=== PATIENT | female | born 1960 | race American Indian/Alaskan Native ===

== ENCOUNTER 2017-11-16 10:08 | Day surgery (SDC) | payer BC, OTHER ==
[~2017-11-16 10:08] MED LIST: ANCEF/STERILE WATER 2 GM/20 ML IV NR; HEPARIN SUB-Q ONE
--- NOTE | 2017-11-16 11:00 | Anesthesia Consultation ---
Anesthesia Consult and Med Hx Date of service: 11/16/17 - Airway Anesthetic Teeth Evaluation: Edentulous (implants) ROM Head & Neck: Adequate Mental/Hyoid Distance: Adequate Mallampati Class: Class II Intubation Access Assessment: Probably Good - Pulmonary Exam CTA: Yes - Cardiac Exam Cardiac Exam: RRR - Pre-Operative Health Status ASA Pre-Surgery Classification: ASA4 Proposed Anesthetic Plan: General - Cardiovascular System Hx Hypertension: Yes (OVER 10 YEARS) - Central Nervous System Hx Neuromuscular Disorder: Yes (diabetic neuropathy) Hx Psychiatric Problems: No - Endocrine Hx End Stage Renal Disease: Yes (on HD m/w/f. last HD on 11/15/17) Hx Non-Insulin Dependent Diabetes: Yes - Hematic Hx Anemia: Yes - Other Systems Hx Alcohol Use: Yes (RARELY) Hx Substance Use: No Hx Cancer: No - Additional Comments Anesthesia Medical History Comments: Informed consent obtained
[2017-11-16] MEDS ORDERED: VERSED IV PRN (11:01)
[2017-11-16] MEDS ORDERED: SUBLIMAZE IV PRN (11:01)
--- NOTE | 2017-11-16 11:01 | Anesthesia Day of Surgery ---
Anesthesia Day of Surgery - Day of Surgery Patient Examined: Yes Patient H&P Reviewed: Yes Patient is NPO: Yes Beta Blockers: Yes
[2017-11-16] MEDS ORDERED: HEPARIN SUB-Q SCH (11:15)
[2017-11-16 11:19] LABS: Basophils % (Auto) 0.4 % (0.0-1.8); Eosinophils # (Auto) 0.1 K/mm3 (0.0-0.4); Eosinophils % (Auto) 1.5 % (0.0-4.3); Hematocrit 32.6 % (30.3-42.9); Hemoglobin 10.7 gm/dl (10.1-14.3); Lymphocytes # (Auto) 1.7 K/mm3 (1.2-5.4); Mean Corpuscular HGB Conc 33 % (30-34); Mean Corpuscular Hemoglobin 30 pg (28-32); Mean Corpuscular Volume 92 fl (79-97); Monocytes # (Auto) 0.5 K/mm3 (0.0-0.8); Monocytes % (Auto) 9.3 % (0.0-7.3); Platelet Count 145 K/mm3 (140-440); Red Blood Count 3.54 M/mm3 (3.65-5.03); Red Cell Distribution Width 19.1 % (13.2-15.2)
[2017-11-16 11:30] LABS: Calcium 9.6 mg/dL (8.4-10.2)
[2017-11-16] MEDS ORDERED: NACL 0.9% 1000 ML 1,000 ML IV SCH (12:00)
[2017-11-16] MEDS ORDERED: HEPARIN 10,000 UNITS/10 ML ONE (13:38)
[2017-11-16] MEDS ORDERED: NACL 0.9% 250ML 250 ML ONE (13:38)
[2017-11-16] MEDS ORDERED: MARCAINE 0.25% INFILTRATI ONE ×2 (13:38→14:36)
[2017-11-16] MEDS ORDERED: NACL P/F VIAL (10 ML) 10 ML ONE (13:39)
[2017-11-16] MEDS ORDERED: XYLOCAINE MPF 2% ONE (13:42)
[2017-11-16] MEDS ORDERED: DIPRIVAN 10 MG/ML IV ONE (13:43)
[2017-11-16] MEDS ORDERED: SUBLIMAZE ONE (13:47)
[2017-11-16] MEDS ORDERED: ePHEDrine SULFATE ONE (14:13)
[2017-11-16] MEDS ORDERED: ZOFRAN ONE (14:27)
[2017-11-16] MEDS ORDERED: ZEMURON IV ONE (14:27)
[2017-11-16] MEDS ORDERED: HEPARIN 10,000 UNITS/10 ML IV ONE (14:30)
[2017-11-16] MEDS ORDERED: NACL 0.9% 250ML IV ONE (14:35)
[2017-11-16] MEDS ORDERED: NACL P/F VIAL (10 ML) INFILTRATI ONE (14:36)
[2017-11-16] MEDS ORDERED: NACL 0.9% IR ONE (14:36)
--- NOTE | 2017-11-16 14:44 | Post Operative Note ---
Pre-op diagnosis: End stage renal failure Post-op diagnosis: same Findings: Redundant omentum Procedure: Laparoscopic PD cath insertion. omentopexy Anesthesia: VINITA Surgeon: MOUNA BRINK Estimated blood loss: minimal Pathology: none Condition: stable Disposition: PACU
--- NOTE | 2017-11-16 14:47 | Discharge Summary ---
Short Stay Discharge Plan Diet: regular Wound: keep clean and dry (PD catheter flushing in dialysis unit on 11/18 or - pt to make appt) Follow up with: ATILIO TAYLOR PA [Primary Care Provider] - 7 Days Prescriptions: Ondansetron [Zofran TAB] 4 mg PO Q8HR PRN #20 tablet PRN Reason: Nausea oxyCODONE /ACETAMINOPHEN [Percocet 5/325] 1 tab PO Q4HR PRN #20 tab PRN Reason: Pain , Severe (7-10) traMADol [Ultram 50 MG tab] 50 mg PO Q6HR PRN #20 tablet PRN Reason: Pain
[2017-11-16 16:34] VITALS: BP 189/87
--- NOTE | 2017-11-24 10:58 | Operative Report ---
PREOPERATIVE DIAGNOSIS: End-stage renal failure, on hemodialysis. POSTOPERATIVE DIAGNOSIS: End-stage renal failure, on hemodialysis. OPERATIVE PROCEDURE: Laparoscopic peritoneal dialysis catheter implantation and laparoscopic omentopexy. ANESTHESIA: General endotracheal. SURGEON: Markel Sheppard MD INDICATIONS: A 56-year-old female patient with end-stage renal failure ,on hemodialysis through a PermCath. She wishes to transfer over to peritoneal dialysis and she is brought in for the above procedure. FINDINGS: No abdominal wall hernia or ascites evident. Omentum is thin, but redundant dropping [facility]ent[facility] down to the pelvis. Visualized part of the liver appeared normal. DESCRIPTION OF PROCEDURE: After satisfactory induction of general endotracheal anesthesia, abdomen was prepped and draped. Abdominal wall skin was covered with an Ioban occlusive drape. Right-sided mid abdominal incision was made and a Veress needle was inserted in the peritoneal cavity. After adequate carbon dioxide insufflation up to 15 mmHg, a 5 mm trocar was inserted. Through this, a 5-mm 30-degree angle scope was placed and under direct visualization, a right upper quadrant 5-mm port was placed. Camera was changed to this location. Omentum was deflected off to the left upper quadrant and below the costal margin in the anterior axillary line. A suture passer needle was inserted and 3 flips of omentum were passed. Omentum was pulled up and attached to left upper quadrant. A 57 cm double cuffed coiled Tenckhoff catheter was soaked in saline solution. The site of insertion was measured and this is at the level of the umbilicus on the left side. A small incision was made after infiltrating local anesthetic and subcutaneous tissue was divided. Some small opening was made in the anterior rectus fascia. Under laparoscopic visualization, a step 1 trocar needle with a sheath was inserted counterpunctured inferiorly in the midline. The needle was removed. The sheath was dilated using a dilator under trocar. The trocars were removed. A catheter guide was passed through the catheter. The catheter was inserted under laparoscopic visualization. The coiled aspect of the catheter was placed over the bowel loops in the pelvis. The deeper cuff was placed between the parietal peritoneum and the anterior rectus fascia. Superficial cuff was placed in the subcutaneous plane and the catheter was brought lateral to the main incision and titanium adapters and transistors were attached to the catheter. The catheter was flushed and it was fresh and aspirating well. Desufflation was done. All the trocars were removed under direct visualization. Incisions were closed with 3-0 Vicryl and 4-0 Monocryl. Bulky dressings were placed over the main incision and Betadine cap was placed. The tail end of the transfer set was left outside further to be flushed in the dialysis unit. She tolerated the procedure and transferred to Postanesthesia Care Unit in satisfactory condition. JOB# [id number] CHOCON/MILADY
--- NOTE | 2017-12-06 09:25 | Operative Report ---
PREOPERATIVE DIAGNOSIS: End-stage renal failure. POSTOPERATIVE DIAGNOSIS: End-stage renal failure. OPERATIVE PROCEDURE: Laparoscopic peritoneal dialysis catheter insertion and laparoscopic omentopexy. ANESTHESIA: General endotracheal. IMPLANTS: PD catheter. BLOOD LOSS: Minimal. COMPLICATIONS: None. INDICATIONS: A 56-year-old female patient with end-stage renal failure, is on temporary hemodialysis, wanted to switch over to peritoneal dialysis program for the long-term renal replacement maintenance and she is brought in for peritoneal dialysis catheter insertion. FINDINGS: No abdominal wall hernia or inguinal hernia evident. No adhesions were noted. Omentum was thin but redundant dropping half way down to the pelvis. DESCRIPTION OF PROCEDURE: After satisfactory induction of general endotracheal anesthesia, abdomen was prepped and draped. Abdominal wall skin was covered with Ioban occlusive drape. A right-sided flank incision was made and a Veress needle was inserted in the peritoneal cavity. After adequate carbon dioxide insufflation up to 15 mmHg, a 5 mm trocar was inserted and through this, a 5-mm 30-degree scope was placed and under direct visualization, a right upper quadrant 5 mm trocar was placed. The omentum was deflected to the left upper quadrant and below the left costal margin in the anterior axillary line, a small incision was made. A suture passer needle with a 0 Vicryl tie was inserted and 3 slips of omentum were passed through this. The omentum was pulled up and tied up to the left upper quadrant. A 57 cm double cuffed Tenckhoff catheter was soaked in saline solution. The site of insertion was measured on the anterior abdominal wall and this is about 1 cm superior and left of the umbilicus. Local anesthetic was infiltrated and a 2 cm transverse incision was made. Subcutaneous tissue was divided. A small incision was made in the anterior rectus fascia. A step 1 trocar needle with sheath was inserted. Counter puncture inferiorly in the midline under laparoscopic visualization. The needle was removed. The sheath was dilated using a dilator under trocar. The trocar was removed. A catheter guide was passed through the catheter and the catheter was inserted under laparoscopic visualization. The coiled aspect of the catheter was placed over the bowel loops in the pelvis. The deeper cuff was placed between the parietal peritoneum and the anterior rectus fascia. Superficial cuff was placed in subcutaneous plane and the catheter was brought out through a separate stab incision lateral to the main incision. Titanium adapters and transfer sets were attached to the catheter. There was no twist or kinking of the catheter. The catheter was flushed and aspirated. It was functioning well. About 150 mL of dilute heparin solution was instilled through the catheter and later it was flushed with 20 mL saline containing 5000 units of heparin. Desufflation was done and all the trocars were removed under direct visualization after checking for hemostasis. The main incision was closed in 2 layers with 3-0 Vicryl and 4-0 Vicryl. Other incisions closed with 4-0 Vicryl. Bulky dressings were placed over the incision and the exit site and the tail end of the transfer set was left outside to be flushed in the dialysis unit after placing a Betadine cap. At the exit site, a Biopatch was placed as well. She tolerated the procedure well and was transferred to postanesthesia care unit in satisfactory condition. JOB# [id number] CHOCON/MILADY
== END 2017-11-16 10:09 | disposition home or self-care (01) ==
LOC: OR 10:08
PROVIDERS: ATTEND Surgery
DX: I12.0 Hypertensive chronic kidney disease with stage 5 chronic kidney disease or end stage renal disease (principal); E11.22 Type 2 diabetes mellitus with diabetic chronic kidney disease; N18.6 End stage renal disease; E11.42 Type 2 diabetes mellitus with diabetic polyneuropathy; Z99.2 Dependence on renal dialysis; Z79.84 Long term (current) use of oral hypoglycemic drugs
CPT/HCPCS: 36415; 49324; 80048; 85025; C1750; J0690; J1644; J2405; J2704; J3010; J7030; J7050

== ENCOUNTER 2017-11-18 10:24 | Outpatient (CLI) | payer OTHER ==
--- NOTE | 2017-11-19 15:26 | Mammography Report ---
BILATERAL DIGITAL SCREENING MAMMOGRAM with CAD : 11/18/17 10:24:00 CLINICAL: Routine screening.On dialysis with a right dialysis catheter. COMPARISON:None available. FINDINGS: Suboptimal positioning of the right breast is related to the position of the dialysis catheter. The breasts are extremely dense, which limits the sensitivity of mammography. Scattered bilateral benign calcifications. Bilateral moderate skin thickening. No mass, architectural distortion or suspicious calcifications. IMPRESSION: No mammographic evidence of malignancy. BI-RADS CATEGORY: 2 -- Benign RECOMMENDATION: Routine mammographic screening in one year. COMMENT: Patient follow-up letters are generated by our [employer] application.
== END 2017-11-18 10:25 | disposition home or self-care (01) ==
LOC: MAMMO 10:24
PROVIDERS: ATTEND Internal Medicine
DX: Z12.31 Encounter for screening mammogram for malignant neoplasm of breast (principal)
CPT/HCPCS: 77067

== ENCOUNTER 2018-06-21 05:54 | Day surgery (SDC) | payer OTHER ==
[2018-06-21] MEDS ORDERED: NACL 0.9% 1000 ML 1,000 ML IV SCH (06:00)
[2018-06-21] MEDS ORDERED: ANCEF/STERILE WATER 2 GM/20 ML 2 GM/20 ML SYRINGE IV NR (06:00)
[2018-06-21] MEDS ORDERED: MARCAINE 0.5% INFILTRATI ONE ×3 (07:20→09:52)
[2018-06-21] MEDS ORDERED: PAPAVERINE ONE (07:21)
[2018-06-21] MEDS ORDERED: NACL 0.9% 500 ML 0 ML ONE (07:21)
[2018-06-21] MEDS ORDERED: HEPARIN 10,000 UNITS/10 ML ONE (07:21)
[2018-06-21] MEDS ORDERED: PROTAMINE SULFATE ONE (07:21)
[2018-06-21] MEDS ORDERED: RIFADIN ONE (07:22)
[2018-06-21] MEDS ORDERED: NACL P/F VIAL (10 ML) 0 ML ONE (07:23)
[2018-06-21] MEDS ORDERED: DECADRON ONE (07:41)
[2018-06-21] MEDS ORDERED: XYLOCAINE MPF 2% ONE (07:41)
[2018-06-21] MEDS ORDERED: DIPRIVAN 10 MG/ML IV ONE (07:41)
[2018-06-21] MEDS ORDERED: ZOFRAN ONE ×2 (07:41→11:24)
[2018-06-21] MEDS ORDERED: SUBLIMAZE ONE (07:41)
[2018-06-21] MEDS ORDERED: SUBLIMAZE IV PRN (07:59)
[2018-06-21] MEDS ORDERED: VERSED IV NR (08:00)
[2018-06-21] MEDS ORDERED: XYLOCAINE 1% 20 mL ONE (08:10)
[2018-06-21 08:14] LABS: Basophils % (Auto) 0.4 % (0.0-1.8); Eosinophils # (Auto) 0.1 K/mm3 (0.0-0.4); Eosinophils % (Auto) 2.5 % (0.0-4.3); Hematocrit 31.5 % (30.3-42.9); Hemoglobin 10.1 gm/dl (10.1-14.3); Lymphocytes # (Auto) 1.2 K/mm3 (1.2-5.4); Lymphocytes % (Auto) 25.4 % (13.4-35.0); Mean Corpuscular HGB Conc 32 % (30-34); Mean Corpuscular Hemoglobin 30 pg (28-32); Mean Corpuscular Volume 94 fl (79-97); Monocytes # (Auto) 0.5 K/mm3 (0.0-0.8); Monocytes % (Auto) 10.9 % (0.0-7.3); Platelet Count 202 K/mm3 (140-440); Red Blood Count 3.33 M/mm3 (3.65-5.03); Red Cell Distribution Width 19.5 % (13.2-15.2)
--- NOTE | 2018-06-21 08:17 | Anesthesia Consultation ---
Anesthesia Consult and Med Hx Date of service: 06/21/18 - Airway Anesthetic Teeth Evaluation: Edentulous ROM Head & Neck: Adequate Mental/Hyoid Distance: Adequate Mallampati Class: Class I Intubation Access Assessment: Good - Pulmonary Exam CTA: Yes - Cardiac Exam Cardiac Exam: RRR - Pre-Operative Health Status ASA Pre-Surgery Classification: ASA4 Proposed Anesthetic Plan: General - Pulmonary Hx Smoking: No Hx Asthma: No Hx Respiratory Symptoms: No - Cardiovascular System Hx Hypertension: Yes Hx Heart Attack/AMI: No Hx Percutaneous Transluminal Coronary Angioplasty (PTCA): No Hx Cardia Arrhythmia: No - Central Nervous System Hx Neuromuscular Disorder: Yes (diabetic neuropathy) Hx Seizures: Yes CVA: Yes - Gastrointestinal Hx Gastroesophageal Reflux Disease: No - Endocrine Hx End Stage Renal Disease: Yes (MWF HD; last 06/20) Hx Liver Disease: No Hx Non-Insulin Dependent Diabetes: Yes - Hematic Hx Anemia: Yes - Other Systems Hx Alcohol Use: Yes (RARELY) Hx Cancer: No
--- NOTE | 2018-06-21 08:18 | Anesthesia Day of Surgery ---
Anesthesia Day of Surgery - Day of Surgery Patient Examined: Yes Patient H&P Reviewed: Yes Patient is NPO: Yes Beta Blockers: Yes
[2018-06-21 08:25] LABS: Calcium 10.8 mg/dL (8.4-10.2)
[2018-06-21] MEDS ORDERED: NACL 0.9% IR ONE (09:49)
[2018-06-21] MEDS ORDERED: HEPARIN 10,000 UNITS/10 ML IR ONE ×2 (09:51→10:08)
[2018-06-21] MEDS ORDERED: NACL 0.9% 500 ML IRRIGATION ONE (09:52)
[2018-06-21] MEDS ORDERED: RIFADIN IV ONE (10:13)
[2018-06-21] MEDS ORDERED: NACL 0.9% 500 ML 500 ML ONE ×2 (10:47→11:05)
--- NOTE | 2018-06-21 11:18 | Short Stay Summary ---
Short Stay Documentation Date of service: 06/21/18 Narrative H&P: See H&P - Allergies and Medications Current Medications: Allergies No Known Allergies Allergy (Verified 06/17/18 12:59) Home Medications Medication Instructions Recorded Confirmed Last Taken Type Carvedilol [Coreg] 12.5 mg PO DAILY 11/12/17 06/21/18 06/21/18 History Ergocalciferol [Vitamin D2] 50,000 units PO QWEEK 11/12/17 06/21/18 06/18/18 09: 00 History Gabapentin [Neurontin] 300 mg PO DAILY 11/12/17 06/21/18 06/20/18 09:00 History Sitagliptin Phosphate [Januvia] 25 mg PO DAILY 11/12/17 06/21/18 06/20/18 09:00 History Aspirin 81 mg PO QDAY 05/07/18 06/21/18 06/20/18 09:00 History Calcitriol [Rocaltrol] 0.25 mcg PO QDAY 05/07/18 06/21/18 06/20/18 09:00 History Ferric Citrate (Nf) [Auryxia (Nf)] 210 mg PO QID 05/07/18 06/21/18 06/20/18 20: 00 History L. Acidophilus/Bifid. Animalis 1 each PO QDAY 05/07/18 06/21/18 06/20/18 09:00 History [Dialyvite Chewable Probiotic] Active Medications Fentanyl (Sublimaze) 50 mcg IV Q15MIN PRN PRN Reason: Pain , Severe (7-10) Stop: 06/21/18 20:00 Cefazolin Sodium (Ancef/Sterile Water 2 Gm/20 Ml) 2 gm in 20 mls @ 80 mls/hr IV PREOP NR; Protocol Stop: 06/21/18 23:59 Sodium Chloride (Nacl 0.9% 1000 Ml) 1,000 mls @ 42 mls/hr IV DIRECT ROGELIO Last Admin: 06/21/18 08:15 Dose: 42 mls/hr Midazolam HCl (Versed) 2 mg IV PREOP NR Stop: 06/21/18 23:59 Last Admin: 06/21/18 08:16 Dose: 2 mg - Brief post op/procedure progress note Date of procedure: 06/21/18 Pre-op diagnosis: End-Stage Renal Disease Post-op diagnosis: same Procedure: Creation of Right Brachial to Right Axillary Vein AV Graft with 6 Mm Bovine Graft Anesthesia: ANITAA Surgeon: JOVITA LEBRON Estimated blood loss: minimal Pathology: none Condition: stable - Disposition Condition at discharge: Good Disposition: DC-01 TO HOME OR SELFCARE Short Stay Discharge Plan Activity: other (no heavy lifting with right arm) Wound: open to air, keep clean and dry, other (okay to wash the wound with soap and water but do not soak in water) Follow up with: JOVITA LEBRON MD [Staff Physician] - 14 Days Prescriptions: HYDROcodone/APAP 7.5-325 [[place] 7.5/325] 1 each PO Q6HR PRN #40 tablet PRN Reason: Pain
--- NOTE | 2018-06-21 11:20 | Post Anesthesia Evaluation ---
- Post Anesthesia Evaluation Patient Participated: Yes Airway Patent: Yes Stable Respiratory Function: Yes Nausea/Vomiting: No Temp > 96.8F: Yes Pain Manageable: Yes Adequeate Hydration: Yes Anesthesia Complications: No
--- NOTE | 2018-06-21 11:20 | Operative Report ---
Operative Report Operative Report: Date of procedure: 06/21/2018 Pre-operative diagnosis: End-Stage Renal Disease Post-operative diagnosis: Same Procedure(s): 1. Creation of Right Brachial Artery to Axillary Vein AV Graft with 6 mm Bovine Graft Surgeon: Mat Sosa MD Telephone Directory Deliverer: None Anesthesia: General Endotracheal Anesthesia EBL: Minimal Counts: Correct Complications: None Condition: Stable Findings: Successful Creation of Right Arm AV Graft Specimen: None Indication: The patient is a 57-year-old female with history of end-stage renal disease who is currently on hemodialysis through a right internal jugular permacath. She is in need of long-term dialysis access and did not have usable vein for creation of a fistula so she needs creation of an AV graft. She was given the risks, benefits, alternative procedures and consented to the procedure. Description of Procedure: The patient was brought to the operating room and laid in supine position after general endotracheal anesthesia was achieved the right arm was prepped and draped in normal sterile fashion. A longitudinal incision was made on the medial aspect of the arm just proximal to the antecubital crease and carried down to the brachial artery using sharp dissection. The brachial artery was dissected out circumferentially both proximally and distally and controlled with vessel loops. A second incision was created in longitudinal fashion on the medial aspect of the arm just distal to the axillary crease and carried down to the axillary vein using sharp dissection. Axillary vein was dissected out circumferentially and controlled with a vessel loop. I then used a Julia- Wick tunneler to tunnel from the brachial artery incision to the axillary vein incision and then put an 6 mm bovine through the tunnel. I infused with heparinized saline to ensure that it was not twisted or kinked. I put the brachial artery vessel loops on tension controlling the flow and then created an arteriotomy using an 11 blade and Verde scissors. I beveled the graft and created an end-to-side anastomosis using 6-0 Prolene running fashion. I clamped the graft just proximal to the anastomosis and then released the vessel loops restoring flow in the brachial artery. I placed quick clot in incision to achieve hemostasis. I cut the proximal end of the graft to the appropriate length and beveled the graft in preparation for a venous anastomosis. I controlled the axillary vein a Satinsky clamp and created a venotomy using an 11 blade and Verde scissors. I created an end to side anastomosis using a 6-0 Prolene in running fashion. Prior to completing the anastomosis I flushed the graft to ensure there was no thrombus and then completed the anastamosis. I released all clamps allowing flow into the AV graft which had an excellent thrill. I packed the wound with quick clot to achieve hemostasis. I anesthetized both wounds with Marcaine and then closed both wounds in 2 layers using 3-0 Vicryl in running fashion in the deep dermal layer and 4-0 Monocryl in running fashion the subcuticular layer. I dressed both wounds with Surgicel. The patient tolerated the procedure well all sponge needle and instrument counts were correct the patient was taken to recovery in stable condition.
[2018-06-21 13:34] VITALS: BP 163/73
== END 2018-06-21 13:30 | disposition home or self-care (01) ==
LOC: OR 05:54
PROVIDERS: ATTEND Surgery Vascular Surgery
DX: E11.22 Type 2 diabetes mellitus with diabetic chronic kidney disease (principal); I12.0 Hypertensive chronic kidney disease with stage 5 chronic kidney disease or end stage renal disease; N18.6 End stage renal disease; E11.40 Type 2 diabetes mellitus with diabetic neuropathy, unspecified; D64.9 Anemia, unspecified; Z79.899 Other long term (current) drug therapy; Z79.82 Long term (current) use of aspirin; Z72.89 Other problems related to lifestyle; Z99.2 Dependence on renal dialysis; Z98.890 Other specified postprocedural states; Z82.49 Family history of ischemic heart disease and other diseases of the circulatory system
CPT/HCPCS: 36415; 36830; 80048; 82962; 85025; C1768; J0690; J1100; J1644; J2250; J2405; J2704; J3010; J3490; J7030; J7040; J2440; J2720

== ENCOUNTER 2019-03-07 09:37 | Outpatient (CLI) | payer OTHER, MEDICARE ==
--- NOTE | 2019-03-07 13:38 | Mammography Report ---
BILATERAL DIGITAL SCREENING MAMMOGRAM with CAD : 03/07/19 09:37:00 CLINICAL: Routine screening. COMPARISON:11/18/17 FINDINGS: The breasts are heterogeneously dense, which may obscure small masses.Extensive bilateral benign arterial calcifications. No mass, architectural distortion or suspicious calcifications. IMPRESSION: No mammographic evidence of malignancy. BI-RADS CATEGORY: 2 -- Benign RECOMMENDATION: Routine mammographic screening in one year. COMMENT: Patient follow-up letters are generated by our [employer] application.
== END 2019-03-07 09:38 | disposition home or self-care (01) ==
LOC: MAMMO 09:37
PROVIDERS: ATTEND Internal Medicine
DX: Z12.31 Encounter for screening mammogram for malignant neoplasm of breast (principal); I12.0 Hypertensive chronic kidney disease with stage 5 chronic kidney disease or end stage renal disease; E11.22 Type 2 diabetes mellitus with diabetic chronic kidney disease; N18.6 End stage renal disease
CPT/HCPCS: 77067

== ENCOUNTER 2020-06-07 08:30 | Inpatient (IN) | payer OTHER, MEDICARE ==
[2020-06-07 09:40] LABS: Basophils % (Auto) 0.3 % (0.0-1.8); Eosinophils % (Auto) 0.3 % (0.0-4.3); Lymphocytes # (Auto) 0.9 K/mm3 (1.2-5.4); Lymphocytes % (Auto) 14.7 % (13.4-35.0); Mean Corpuscular HGB Conc 34 % (30-34); Mean Corpuscular Volume 100 fl (79-97); Monocytes # (Auto) 0.3 K/mm3 (0.0-0.8); Monocytes % (Auto) 4.4 % (0.0-7.3); Platelet Count 124 K/mm3 (140-440); Red Blood Count 1.35 M/mm3 (3.65-5.03); Red Cell Distribution Width 14.7 % (13.2-15.2)
[2020-06-07 09:44] LABS: Hematocrit 13.5 % (30.3-42.9); Hemoglobin 4.5 gm/dl (10.1-14.3)
[2020-06-07 09:47] LABS: Albumin 3.1 g/dL (3.9-5)
--- NOTE | 2020-06-07 09:52 | XRay Report ---
CHEST 1 VIEW INDICATION / CLINICAL INFORMATION: WEAKNESS, HYPOTENSION, VOMITING. COMPARISON: 05/07/2018 FINDINGS: SUPPORT DEVICES: None. HEART / MEDIASTINUM: No significant abnormality. LUNGS / PLEURA: No significant pulmonary or pleural abnormality.. No pneumothorax. ADDITIONAL FINDINGS: Vascular stent is noted in the right axilla. IMPRESSION: 1. No acute findings. Signer Name: Blake Ortega MD Signed: 06/07/2020 9:47 AM Workstation Name: [id number]
--- NOTE | 2020-06-07 09:55 | Emergency Department Report ---
- General Chief complaint: Weakness Stated complaint: HYPOTENSION,WEAKNESS Time Seen by Provider: 06/07/20 08:52 Source: patient, EMS Mode of arrival: Stretcher Limitations: No Limitations - History of Present Illness Initial comments: 59-year-old female the past medical history of end-stage renal disease on dialysis Wednesday, Wednesday, Wednesday, diabetes, hypertension presents to the hospital after episode of nausea with vomiting and hypotension upon arrival to dialysis center. Patient apparently had a systolic blood pressure in the 70s. Patient received antiemetic medication prior to arrival with improvement in nausea and vomiting and was provided a 300 normal saline bolus with improvement of blood pressure. Patient reports feeling better. She denies headache, chest pain, abdominal pain, or shortness of breath. He has been compliant with her dialysis sessions. Patient does states she had episode of black stool 3 days ago. Patient states she had a normal colonoscopy in 2018 denies history of peptic ulcer disease or previous GI bleed. Patient is on aspirin 1 mg daily denies other antiplatelet or blood thinner use. Engine Service Repairer: Dr. Griffin Patient is initial pulse ox on medical record is documented incorrectly and patient does not have any signs of hypoxia and is satting in the high 90s on room air Severity scale (0 -10): 0 - Related Data Home Medications Medication Instructions Recorded Confirmed Last Taken Ergocalciferol [Vitamin D2] 50,000 units PO QWEEK 11/12/17 06/21/18 06/18/18 09:00 Gabapentin 300 mg PO DAILY 11/12/17 06/21/18 06/20/18 09:00 Sitagliptin Phosphate [Januvia] 25 mg PO DAILY 11/12/17 06/21/18 06/20/18 09:00 carvediloL [Coreg] 12.5 mg PO DAILY 11/12/17 06/21/18 06/21/18 Aspirin 81 mg PO QDAY 05/07/18 06/21/18 06/20/18 09:00 Ferric Citrate (Nf) [Auryxia] 210 mg PO QID 05/07/18 06/21/18 06/20/18 20:00 L. Acidophilus/Bifid. Animalis 1 each PO QDAY 05/07/18 06/21/18 06/20/18 09:00 [Dialyvite Chewable Probiotic] calcitrioL [Rocaltrol] 0.25 mcg PO QDAY 05/07/18 06/21/18 06/20/18 09:00 Previous Rx's Medication Instructions Recorded Last Taken Type HYDROcodone/APAP 7.5-325 [[place] 1 each PO Q6HR PRN #40 tablet 06/21/18 Unknown Rx 7.5/325] Allergies Allergy/AdvReac Type Severity Reaction Status Date / Time No Known Allergies Allergy Verified 06/17/18 12:59 ED Review of Systems ROS: Stated complaint: HYPOTENSION,WEAKNESS Other details as noted in HPI Comment: All other systems reviewed and negative ED Past Medical Hx - Past Medical History Hx Hypertension: Yes Hx Heart Attack/AMI: No Hx Diabetes: Yes Hx Liver Disease: No Hx Seizures: No Hx Asthma: No Additional medical history: PD - Surgical History Additional Surgical History: PD CATH - Social History Smoking Status: Never Smoker Substance Use Type: None - Medications Home Medications: Home Medications Medication Instructions Recorded Confirmed Last Taken Type Ergocalciferol [Vitamin D2] 50,000 units PO QWEEK 11/12/17 06/21/18 06/18/18 09:00 History Gabapentin 300 mg PO DAILY 11/12/17 06/21/18 06/20/18 09:00 History Sitagliptin Phosphate [Januvia] 25 mg PO DAILY 11/12/17 06/21/18 06/20/18 09:00 History carvediloL [Coreg] 12.5 mg PO DAILY 11/12/17 06/21/18 06/21/18 History Aspirin 81 mg PO QDAY 05/07/18 06/21/18 06/20/18 09:00 History Ferric Citrate (Nf) [Auryxia] 210 mg PO QID 05/07/18 06/21/18 06/20/18 20:00 History L. Acidophilus/Bifid. [place] 1 each PO QDAY 05/07/18 06/21/18 06/20/18 09:00 History [Dialyvite Chewable Probiotic] calcitrioL [Rocaltrol] 0.25 mcg PO QDAY 05/07/18 06/21/18 06/20/18 09:00 History HYDROcodone/APAP 7.5-325 [[place] 1 each PO Q6HR PRN #40 tablet 06/21/18 Unknown Rx 7.5/325] ED Physical Exam - General Limitations: No Limitations - Other Other exam information: General: No acute distress Head: Atraumatic Eyes: normal appearance ENT: Moist mucous membranes Neck: Normal appearance, no midline tenderness Chest: Clear to auscultation bilaterally CV: Regular rate and rhythm Abdomen: Soft, normal bowel sounds, nontender, nondistended, no rebound or guarding Back: Normal inspection Extremity: Normal inspection, full range of motion Neuro: Alert O x 3, no facial asymmetry, speech clear, no gross motor sensory deficit Psych: Appropriate behavior Skin: No rash ED Course Vital Signs 06/07/20 06/07/20 06/07/20 08:49 08:50 09:00 Temperature 97.9 F Pulse Rate 91 H 90 Respiratory 16 19 10 L Rate Blood Pressure 125/39 Blood Pressure 118/50 [Left] O2 Sat by Pulse 79 L 99 97 Oximetry 06/07/20 10:00 Temperature Pulse Rate 95 H Respiratory 16 Rate Blood Pressure 116/44 Blood Pressure [Left] O2 Sat by Pulse 97 Oximetry - Consultations Consultation #1: 06/07/20 10:21 Dr. Griffin with nephrology was consulted to manage dialysis. Since patient is not currently in volume overload or hyperkalemia will likely perform dialysis tomorrow. Dr. Stephen with GI consulted and patient will be evaluated ED Medical Decision Making - Lab Data Result diagrams: 06/07/20 09:08 06/07/20 09:08 Lab Results 06/07/20 06/07/20 Range/Units 09:08 09:08 WBC 6.4 (4.5-11.0) K/mm3 RBC 1.35 L (3.65-5.03) M/mm3 Hgb 4.5 L* (10.1-14.3) gm/dl Hct 13.5 L* (30.3-42.9) % MCV 100 H (79-97) fl MCH 33 H (28-32) pg MCHC 34 (30-34) % RDW 14.7 (13.2-15.2) % Plt Count 124 L (140-440) K/mm3 Lymph % (Auto) 14.7 (13.4-35.0) % [place] % (Auto) 4.4 (0.0-7.3) % Eos % (Auto) 0.3 (0.0-4.3) % Baso % (Auto) 0.3 (0.0-1.8) % Lymph # 0.9 L (1.2-5.4) K/mm3 [place] # 0.3 (0.0-0.8) K/mm3 Eos # 0.0 (0.0-0.4) K/mm3 Baso # 0.0 (0.0-0.1) K/mm3 Seg Neutrophils % 80.3 H (40.0-70.0) % Seg Neutrophils # 5.2 (1.8-7.7) K/mm3 Sodium 138 (137-145) mmol/L Potassium 3.1 L (3.6-5.0) mmol/L Chloride 97.1 L (98-107) mmol/L Carbon Dioxide 24 (22-30) mmol/L Anion Gap 20 mmol/L BUN 53 H (7-17) mg/dL Creatinine 5.5 H (0.6-1.2) mg/dL Estimated GFR 10 ml/min BUN/Creatinine Ratio 10 % Glucose 99 (65-100) mg/dL Calcium 9.0 (8.4-10.2) mg/dL Total Bilirubin 0.40 (0.1-1.2) mg/dL AST 14 (5-40) units/L ALT 11 (7-56) units/L Alkaline Phosphatase 45 (35-129) units/L Troponin T 0.071 H (0.00-0.029) ng/mL Total Protein 5.3 L (6.3-8.2) g/dL Albumin 3.1 L (3.9-5) g/dL Albumin/Globulin Ratio 1.4 % Triglycerides 155 H (2-149) mg/dL Cholesterol 118 (50-199) mg/dL LDL Cholesterol Direct 56 (50-130) mg/dL HDL Cholesterol 32 L (40-59) mg/dL Cholesterol/HDL Ratio 3.68 % Lipase 44 (13-60) units/L - EKG Data -: EKG Interpreted by Ny EKG shows normal: sinus rhythm, ST-T waves (no stemi, incomplete lbb) Rate: normal - Radiology Data Radiology results: report reviewed (Portable chest x-ray: No acute finding) - Medical Decision Making 59-year-old female developed hypotension nausea and vomiting in route to dialysis without complaints of pain. Symptoms resolved with Zofran and normal saline 300 bolus prior to ED arrival and patient is currently asymptomatic. Vital signs stable in the ED. Labs reveal significant anemia with guaiac positive stools. 2 units of PRBCs and Photonix IV ordered. Mild troponin elevation noted likely secondary to end-stage renal disease without signs of isc hemia. Repeat troponin pending nephrology and GI consulted. Hospitalist to admit Critical Care Time: No Critical care attestation.: If time is entered above; I have spent that time in minutes in the direct care of this critically ill patient, excluding procedure time. ED Disposition Clinical Impression: ESRD on dialysis, Symptomatic anemia, Stool guaiac positive, Thrombocytopenia Disposition: OP ADMIT IP TO THIS HOSP Is pt being admited?: Yes Condition: Stable Time of Disposition: 10:21 (Samantha hosptalist)
[2020-06-07 10:00] LABS: Chol/HDL Ratio 3.68 %
[2020-06-07] MEDS ORDERED: SODIUM CHLORIDE 0.9% 500 ML 500 ML IV ONE (10:15)
[2020-06-07] MEDS ORDERED: PANTOPRAZOLE 40 MG INJ IV ONE (10:20)
[2020-06-07 10:42] LABS: INR 1.15 (0.87-1.13)
[2020-06-07 10:43] LABS: Partial Thromboplastin Time 27.6 Sec. (24.2-36.6)
--- NOTE | 2020-06-07 10:45 | Consultation ---
History of Present Illness - History of Present Illness Thank you for the consultation Patient was evaluated today My assessment and plan are as follows #End-stage renal disease: Patient is currently on maintenance hemodialysis within no emergent indication for renal replacement therapy today we will reassess her tomorrow morning to see if she will benefit from dialysis for volume and hemoglobin needs to be stable including her blood pressure #Electrolyte and volume: To monitor and follow #Dialysis Access: Working well no issues per patient #Anemia in end-stage renal disease to monitor hemoglobin and hematocrit periodically erythropoietin as needed, #Bone mineral disorder and secondary hyperparathyroidism: Monitor phosphorus and PTH level periodically, #Diet and nutrition: Patient advised to maintain 1200 cc fluid restriction needs to be on protein: 1.5 g/kg body weight daily, supplement should be considered Current lab results were explained to the patient at length in simple [place] Citizen and patient does have clear understanding All dialysis-related questions have been answered to the patient More than 35 minutes were spent in direct patient care today at the bedside, If there are any further question in regard to this patient's renal care please call at [phone] Author: Adriano Griffin M.D. [facility], [address] [place] [address] Source of information: From patient History of present illness Patient is a 59-year-old -[place] female who has been admitted here with active GI bleed which has started since Wednesday of this week, patient came to the hospital because she developed hypotension, she did not inform anyone about her ongoing bleeding, she was also feeling lightheaded and dizzy upon arrival. At home she has been taking carvedilol 12.5 mg twice a day as well as gabapentin 300 mg once a day in addition to several other medications. She is also currently dialysis dependent but there is no emergent indication for dialysis today, even so this hospitalization were reviewed, her potassium was 3.1 admission hemoglobin 4.5. Patient appears to be resting comfortably she has her cane by her bedside, does not appear to be any distress at all Past medical history: ESRD Hypertension Anemia and chronic kidney disease Current allergies: Reviewed from the current chart Social history: Reviewed from the current chart Family history: Reviewed from the current chart Review of system: patient complains of generalized weakness fatigue blood in the stool since Wednesday of this week dizziness lightheadedness, noted to be hypotensive All other review of systems negative Physical examination Vitals: Reviewed General: No acute distress HEENT: Oral mucosa moist severe pallor present Neck: Supple without any JVD thyromegaly or nodular mass Chest: Clear to auscultation Heart: Regular rate and rhythm S1-S2 heard no S3-S4 Abdomen: Soft nontender, bowel sounds present no renal bruit no suprapubic masses no CVA tenderness noted Extremity: Minimal edema dry skin no peripheral cyanosis Endocrine: Thyroid not enlarged Psychiatric: No agitation and aggression noted Musculoskeletal: No joint effusion noted Labs and x-rays: Reviewed from this admission Medications and Allergies Allergies Allergy/AdvReac Type Severity Reaction Status Date / Time No Known Allergies Allergy Verified 06/17/18 12:59 Home Medications Medication Instructions Recorded Confirmed Last Taken Type Ergocalciferol [Vitamin D2] 50,000 units PO QWEEK 11/12/17 06/21/18 06/18/18 09:00 History Gabapentin 300 mg PO DAILY 11/12/17 06/21/18 06/20/18 09:00 History Sitagliptin Phosphate [Januvia] 25 mg PO DAILY 11/12/17 06/21/18 06/20/18 09:00 History carvediloL [Coreg] 12.5 mg PO DAILY 11/12/17 06/21/18 06/21/18 History Aspirin 81 mg PO QDAY 05/07/18 06/21/18 06/20/18 09:00 History Ferric Citrate (Nf) [Auryxia] 210 mg PO QID 05/07/18 06/21/18 06/20/18 20:00 History L. Acidophilus/Bifid. [place] 1 each PO QDAY 05/07/18 06/21/18 06/20/18 09:00 History [Dialyvite Chewable Probiotic] calcitrioL [Rocaltrol] 0.25 mcg PO QDAY 05/07/18 06/21/18 06/20/18 09:00 History HYDROcodone/APAP 7.5-325 [[place] 1 each PO Q6HR PRN #40 tablet 06/21/18 Unknown Rx 7.5/325] Exam - Vital Signs Vital signs: Vital Signs Resp Pulse Ox 16 79 L 06/07/20 08:49 06/07/20 08:49 Results - Lab Results 06/08/20 02:19 06/07/20 09:08 Most recent lab results Calcium 9.0 mg/dL (8.4-10.2) 06/07/20 09:08
--- NOTE | 2020-06-07 11:32 | History and Physical Report ---
History of Present Illness Date of examination: 06/07/20 Date of admission: t Chief complaint: Generalized weakness History of present illness: 59-year-old -Sudanese female with past medical history significant for end-stage renal disease on hemodialysis was brought from dialysis center for hypotension. Patient stated she has been feeling weak for the last 3 days. Patient had dialysis on Wednesday and she was okay but Wednesday she had a large dark stool after that she became weak. This morning while she was in dialysis she had vomiting which was the food which she ate, there was no blood, no dark either. Patient was sent to emergency department and in the emergency department hemoglobin was 4.6. Patient was given 300 mL of IV fluids and last blood pressure was 125/60. Nephrology Dr. Griffin consulted who is her pharmacist's aide and saw the patient. GI was consulted. I put the patient on IV PPI twice daily and 2 units of blood was ordered for transfusion. Will monitor H&H. Patient denied any history of GI bleeding but she said she was anemic in 2018 and was transfused blood. Patient is taking aspirin 81 mg daily but is not taking any other NSAIDs. REVIEW OF SYSTEMS: GENERAL: no weight change, no fever HEAD: no head ache EYES: no blurry vision, no acute visual loss EARS: no hearing loss, no discharge, no earache NOSE: no stuffiness, no sneezing, no discharge MOUTH, THROAT AND NECK: no bleeding gums, no sore throat, no swollen neck CARDIAC: no palpitations, no dyspnea on exertion, no orthopnea, no PND, no edema, no chest pain RESPIRATORY: no shortness of breath, no wheeze, no cough, no sputum, no hemoptysis, no asthma GI: no decreased appetite, no nausea, no vomiting, no dysphagia, no diarrhea, no constipation, no abdominal pain URINARY: No urgency, hematuria, dysuria or frequency. MUSCULOSKELETAL: no muscle weakness, no pain, no joint stiffness NEUROLOGIC: no loss of sensation/numbness, no tingling, no tremors, no weakness/paralysis HEMATOLOGIC: no easy bruising SKIN: no rashes ENDOCRINE: no heat/cold intolerance, no polyuria, no polydipsia, no thyroid problems, no diabetes PSYCHIATRIC: no anxiety, no depression, no suicidal ideations Past History Past Medical History: renal failure Past Surgical History: Other (AV graft formation in 2018) Social history: full code. denies: smoking, alcohol abuse, prescription drug abuse, IV drug use Family history: other (No family history of GI bleed or kidney disease) Medications and Allergies Allergies Allergy/AdvReac Type Severity Reaction Status Date / Time No Known Allergies Allergy Verified 06/17/18 12:59 Home Medications Medication Instructions Recorded Confirmed Last Taken Type Ergocalciferol [Vitamin D2] 50,000 units PO QWEEK 11/12/17 06/21/18 06/18/18 09:00 History Gabapentin 300 mg PO DAILY 11/12/17 06/21/18 06/20/18 09:00 History Sitagliptin Phosphate [Januvia] 25 mg PO DAILY 11/12/17 06/21/18 06/20/18 09:00 History carvediloL [Coreg] 12.5 mg PO DAILY 11/12/17 06/21/18 06/21/18 History Aspirin 81 mg PO QDAY 05/07/18 06/21/18 06/20/18 09:00 History Ferric Citrate (Nf) [Auryxia] 210 mg PO QID 05/07/18 06/21/18 06/20/18 20:00 History L. Acidophilus/Bifid. [place] 1 each PO QDAY 05/07/18 06/21/18 06/20/18 09:00 History [Dialyvite Chewable Probiotic] calcitrioL [Rocaltrol] 0.25 mcg PO QDAY 05/07/18 06/21/18 06/20/18 09:00 History HYDROcodone/APAP 7.5-325 [[place] 1 each PO Q6HR PRN #40 tablet 06/21/18 Unknown Rx 7.5/325] Active Meds: Active Medications Acetaminophen (Tylenol) 650 mg PO Q4H PRN PRN Reason: Pain MILD(1-3)/Fever >100.5/YOO Ondansetron HCl (Zofran) 4 mg IV Q8H PRN PRN Reason: Nausea And Vomiting Pantoprazole Sodium (Protonix) 40 mg IV BID ROGELIO Sodium Chloride (Sodium Chloride Flush Syringe 10 Ml) 10 ml IV BID ROGELIO Sodium Chloride (Sodium Chloride Flush Syringe 10 Ml) 10 ml IV PRN PRN PRN Reason: LINE FLUSH Exam - Physical Exam Narrative exam: Not in cardiopulmonary distress. The patient appeared well nourished and normally developed. Vital signs as documented. Head exam is unremarkable. No scleral icterus, pale conjunctiva. Neck is without jugular venous distension, thyromegaly, or carotid bruits. Lungs are clear to auscultation. Cardiac exam reveals regular rate and Rhythm. Abdominal exam reveals normal bowel sounds, nontender, no organomegaly. Extremities are nonedematous and both femoral and pedal pulses are normal. COLD REDUCTION ROLLER: Alert and oriented 3. No focal weakness. - Constitutional Vitals: Temp Pulse Resp BP Pulse Ox 97.9 F 97 H 19 116/44 100 06/07/20 08:50 06/07/20 11:00 06/07/20 11:00 06/07/20 11:00 06/07/20 11:00 HEART Score - HEART Score Troponin: Troponin T 0.071 ng/mL (0.00-0.029) H 06/07/20 09:08 Results - Labs CBC & Chem 7: 06/07/20 09:08 06/07/20 09:08 Labs: Laboratory Last Values WBC 6.4 K/mm3 (4.5-11.0) 06/07/20 09:08 RBC 1.35 M/mm3 (3.65-5.03) L 06/07/20 09:08 Hgb 4.5 gm/dl (10.1-14.3) L* 06/07/20 09:08 Hct 13.5 % (30.3-42.9) L* 06/07/20 09:08 MCV 100 fl (79-97) H 06/07/20 09:08 MCH 33 pg (28-32) H 06/07/20 09:08 MCHC 34 % (30-34) 06/07/20 09:08 RDW 14.7 % (13.2-15.2) 06/07/20 09:08 Plt Count 124 K/mm3 (140-440) L 06/07/20 09:08 Lymph % (Auto) 14.7 % (13.4-35.0) 06/07/20 09:08 [place] % (Auto) 4.4 % (0.0-7.3) 06/07/20 09:08 Eos % (Auto) 0.3 % (0.0-4.3) 06/07/20 09:08 Baso % (Auto) 0.3 % (0.0-1.8) 06/07/20 09:08 Lymph # 0.9 K/mm3 (1.2-5.4) L 06/07/20 09:08 [place] # 0.3 K/mm3 (0.0-0.8) 06/07/20 09:08 Eos # 0.0 K/mm3 (0.0-0.4) 06/07/20 09:08 Baso # 0.0 K/mm3 (0.0-0.1) 06/07/20 09:08 Seg Neutrophils % 80.3 % (40.0-70.0) H 06/07/20 09:08 Seg Neutrophils # 5.2 K/mm3 (1.8-7.7) 06/07/20 09:08 PT 14.8 Sec. (12.2-14.9) 06/07/20 09:54 INR 1.15 (0.87-1.13) H 06/07/20 09:54 APTT 27.6 Sec. (24.2-36.6) 06/07/20 09:54 Sodium 138 mmol/L (137-145) 06/07/20 09:08 Potassium 3.1 mmol/L (3.6-5.0) L 06/07/20 09:08 Chloride 97.1 mmol/L (98-107) L 06/07/20 09:08 Carbon Dioxide 24 mmol/L (22-30) 06/07/20 09:08 Anion Gap 20 mmol/L 06/07/20 09:08 BUN 53 mg/dL (7-17) H 06/07/20 09:08 Creatinine 5.5 mg/dL (0.6-1.2) H 06/07/20 09:08 Estimated GFR 10 ml/min 06/07/20 09:08 BUN/Creatinine Ratio 10 % 06/07/20 09:08 Glucose 99 mg/dL (65-100) 06/07/20 09:08 Calcium 9.0 mg/dL (8.4-10.2) 06/07/20 09:08 Total Bilirubin 0.40 mg/dL (0.1-1.2) 06/07/20 09:08 AST 14 units/L (5-40) 06/07/20 09:08 ALT 11 units/L (7-56) 06/07/20 09:08 Alkaline Phosphatase 45 units/L (35-129) 06/07/20 09:08 Troponin T 0.071 ng/mL (0.00-0.029) H 06/07/20 09:08 Total Protein 5.3 g/dL (6.3-8.2) L 06/07/20 09:08 Albumin 3.1 g/dL (3.9-5) L 06/07/20 09:08 Albumin/Globulin Ratio 1.4 % 06/07/20 09:08 Triglycerides 155 mg/dL (2-149) H 06/07/20 09:08 Cholesterol 118 mg/dL (50-199) 06/07/20 09:08 LDL Cholesterol Direct 56 mg/dL (50-130) 06/07/20 09:08 HDL Cholesterol 32 mg/dL (40-59) L 06/07/20 09:08 Cholesterol/HDL Ratio 3.68 % 06/07/20 09:08 Lipase 44 units/L (13-60) 06/07/20 09:08 Blood Type A POSITIVE 06/07/20 09:54 Antibody Screen Negative 06/07/20 09:54 Crossmatch See Detail 06/07/20 09:54 Microbiology: Microbiology 06/07/20 09:50 Stool Stool Occult Blood (MARVIN) - Final Riley/IV: IV Catheter Type [Right EJ Internal Jugular] Assessment and Plan Assessment and plan: Severe symptomatic anemia, GI bleed on top of anemia of chronic illness -We will transfuse 2 units of packed RBC, monitor H&H closely -GI consulted -On IV pantoprazole 40 mg IV twice daily GI bleed -Management as stated above and GI will follow End-stage renal disease on hemodialysis -Nephrology consult appreciated Hypotension -Due to volume depletion -Was given IV fluids and currently stabilized -We will monitor DVT prophylaxis on SCDs because of GI. CODE STATUS -DNR/DNI Disposition -Admit to telemetry floor Advance Directives: Yes VTE prophylaxis?: Mechanical Contraindication Mechanical VTE Prophylaxis: Contraindicated Reason for no VTE Prophylaxis: Bleeding Plan of care discussed with patient/family: Yes
[2020-06-07] MEDS ORDERED: ONDANSETRON 4 MG/2 ML INJ IV PRN (12:00)
[2020-06-07] MEDS ORDERED: ACETAMINOPHEN 325 MG TAB PO PRN (12:00)
--- NOTE | 2020-06-07 14:36 | Anesthesia Day of Surgery ---
Anesthesia Day of Surgery - Day of Surgery Patient Examined: Yes Patient H&P Reviewed: Yes Patient is NPO: Yes
--- NOTE | 2020-06-07 14:38 | Anesthesia Consultation ---
Anesthesia Consult and Med Hx Date of service: 06/07/20 - Airway Anesthetic Teeth Evaluation: Edentulous (Has posts for dentures) Mental/Hyoid Distance: Adequate Mallampati Class: Class II Intubation Access Assessment: Good - Pre-Operative Health Status ASA Pre-Surgery Classification: ASA3, Emergency Proposed Anesthetic Plan: MAC - Pulmonary Hx Smoking: No Hx Asthma: No Hx Respiratory Symptoms: No (Is able to walk a city block and climbs four steps at home) - Cardiovascular System Hx Hypertension: Yes Hx Coronary Artery Disease: No (Pt reports negative NST in 2018) Hx Heart Attack/AMI: No Hx Percutaneous Transluminal Coronary Angioplasty (PTCA): No Hx Cardia Arrhythmia: No - Central Nervous System Hx Neuromuscular Disorder: Yes (diabetic neuropathy) Hx Seizures: No CVA: Yes Hx Psychiatric Problems: No - Gastrointestinal Hx Ulcer: Yes (UGI bleed) Hx Gastroesophageal Reflux Disease: No - Endocrine Hx Renal Disease: Yes Hx End Stage Renal Disease: Yes (MWF HD; last 06/05) Hx Liver Disease: No Hx Non-Insulin Dependent Diabetes: Yes (Diet controlled) - Hematic Hx Anemia: Yes Hx Sickle Cell Disease: No - Other Systems Hx Alcohol Use: Yes (RARELY) Hx Cancer: No
[2020-06-07] MEDS ORDERED: SODIUM CHLORIDE 0.9% 1000 ML 1,000 ML ONE (14:44)
[2020-06-07] MEDS ORDERED: WATER FOR IRRIG STERILE 250 ML BOTTLE IR ONE (14:45)
[2020-06-07] MEDS ORDERED: WATER FOR IRRIG STERILE 1,000 ML BOTTLE ONE (14:45)
[2020-06-07] MEDS ORDERED: SODIUM CHLORIDE 0.9% 1000 ML 1,000 ML IV SCH (15:00)
[2020-06-07] MEDS ORDERED: propofoL 200 MG/20 ML VIAL IV ONE (15:11)
[2020-06-07] MEDS ORDERED: EPINEPHrine 1 MG/10 ML SYRINGE ONE (15:17)
[2020-06-07] MEDS ORDERED: ONDANSETRON 4 MG/2 ML INJ IV ONE (15:45)
[2020-06-07] MEDS ORDERED: ONDANSETRON 4 MG/2 ML INJ ONE (15:49)
--- NOTE | 2020-06-07 17:58 | Post Anesthesia Evaluation ---
- Post Anesthesia Evaluation Patient Participated: Yes Airway Patent: Yes Stable Respiratory Function: Yes Nausea/Vomiting: No Temp > 96.8F: Yes Pain Manageable: Yes Adequeate Hydration: Yes Anesthesia Complications: No Block Receding Appropriately: Not Applicable Patient on Ventilator: No
--- NOTE | 2020-06-07 18:34 | Post Operative Note ---
Pre-op diagnosis: gi bleed Post-op diagnosis: same Findings: EGD: hiatal hernia - gastritis - pigmented vessel w/ surrounding ulcer pylorus (Epi 1:10 k 6cc/heater probe applied w/ noted bleeding that was controlled) - negative other Procedure: EGD w/ bleeding therapy Anesthesia: MAC Surgeon: JACKSON LOMAX Estimated blood loss: none Specimen disposition: to lab Condition: stable Disposition: floor
[2020-06-07 18:57] LABS: Hematocrit 22.6 % (30.3-42.9)
--- NOTE | 2020-06-07 19:53 | Operative Report ---
PROCEDURE: EGD with bleeding therapy. INDICATIONS: 1. Anemia. 2. Upper gastrointestinal bleed. MEDICATIONS: Propofol per GATEMAN. COMPLICATIONS: None. DESCRIPTION OF PROCEDURE: The patient brought to procedure suite. The patient had the procedure discussed with her at length. All risks, complications, and benefits discussed after which the patient signed for the procedure performed. The patient was placed in left lateral decubitus position. Mouth block was placed in the patient's oral cavity. After adequate sedation medication as above, endoscope was introduced into the mouth and brought to level of the second portion of duodenum. Retroflexion view performed. The patient's vital signs remained stable throughout the procedure. FINDINGS: There was noted to be a small hiatal hernia at GE junction 38 cm from the gums. Esophagus otherwise appeared to be normal. Small amount of old blood noted in the distal stomach. There was noted to be fairly sizable approximately 6 mm raised pigmented vessel with surrounding ulcer noted in the gastric pylorus. Mild erythema and bleeding was noted from that area. The duodenum was visualized and otherwise appeared normal. Retroflexion view performed and the stomach showed no other pathology other than noted above. After this inspection, epinephrine 1:10,000 dilution, a total of 6 mL was applied in 4 quadrants around the ulcer with visible vessel area. Heater probe was then applied with initial bleeding that was stabilized. Post-procedure appearance was satisfactory. The patient tolerated the procedure well. No complications during the procedure. IMPRESSION: 1. Hiatal hernia. 2. Otherwise, normal esophagus. 3. Mild gastritis was a small amount of old blood in the stomach. 4. Ulcer, pylorus with pigmented vessel, status post bleeding therapy as noted above. 5. Otherwise, normal EGD. RECOMMENDATIONS: 1. PPI IV drip. 2. Follow hematocrit and transfuse as needed. 3. Avoid NSAIDs and aspirin. 4. Clear liquid diet. 5. We will follow. JOB# [id number] CAB/NTS
[2020-06-07] MEDS: PANTOPRAZOLE 40 MG INJ IV SCH (21:52)
--- NOTE | 2020-06-08 01:08 | Consultation ---
REFERRING PHYSICIAN: Sumanth Singh MD INDICATION: GI bleed. HISTORY OF PRESENT ILLNESS: The patient is a 59-year-old black female with history of end-stage renal disease, on dialysis, being seen by GI for upper GI bleed. The patient reports progressive weakness with dark stools over the last 3 days. She subsequently went to dialysis and was told that she was very anemic. She reports no hematemesis. Denies any history of GI bleed. She denies NSAID or aspirin use. The patient subsequently was admitted and GI consulted. She does report history of anemia in the past. PAST MEDICAL HISTORY: End-stage renal disease, on dialysis. MEDICATIONS: Reviewed and updated in chart. ALLERGIES: No known drug allergies. SOCIAL HISTORY: Denies alcohol, tobacco or drug abuse. FAMILY HISTORY: Negative for colon cancer, IBD, or liver disease. REVIEW OF SYSTEMS: GENERAL: Reports some weakness. HEENT: No visual complaints or tinnitus. PULMONARY: No shortness of breath. No cough. No chest pain. GASTROINTESTINAL: Reports black stools and coffee emesis. All points of 13-point review of systems otherwise negative. PHYSICAL EXAMINATION: VITAL SIGNS: Temperature of 98.5, pulse 85, respirations 17, and blood pressure 150/70. GENERAL: Fairly thin female, in no acute distress. HEENT: Pupils equal, round and reactive. PULMONARY: Clear to auscultation bilaterally. CARDIOVASCULAR: Regular rhythm. Normal S1, S2. ABDOMEN: Positive bowel sounds, soft. SKIN: No obvious rashes. LABORATORY DATA: Pertinent for white count of 6.4, hemoglobin and hematocrit of 4.5 and 13.5, and platelet count of 124. INR of 1.15. Chem-7 is within normal limits except for BUN and creatinine of 53 and 5.5. ASSESSMENT: A 59-year-old female with history of end-stage renal disease, now with dark stools and coffee emesis and signs of upper gastrointestinal bleed. PLAN: 1. N.p.o. 2. Transfuse 2 units of packed red blood cells. 3. PPI IV drip. 4. Plan EGD today. 5. Further recommendations based on EGD results. JOB# [id number] CAB/NTS
[2020-06-08 02:52] LABS: Hemoglobin 6.8 gm/dl (10.1-14.3)
[2020-06-08 03:34] LABS: Hematocrit 19.3 % (30.3-42.9)
[2020-06-08] MEDS ORDERED: SODIUM CHLORIDE 0.9% 500 ML 500 ML IV ONE ×3 (03:43→09:11)
--- NOTE | 2020-06-08 08:28 | Progress Note ---
Subjective Interval history: Patient was seen today for follow-up of multiple renal related issues No complaints of any chest pain pressure or shortness of breath Interdisciplinary notes that also reviewed Events of 24 hours vitals labs intake output medications were reviewed Past medical history: Reviewed Family history: Reviewed Social history: Reviewed Allergies: Reviewed Physical examination: Vitals: Reviewed HEENT: No pallor or icterus oral mucosa moist Neck: Supple no JVD no thyromegaly Chest: Bilateral clear to auscultation anteriorly Heart: Regular rate and rhythm S1-S2 heard no S3-S4 Abdomen: Soft nontender no voluntary guarding rigidity rebound Extremity: Dry skin less than 1+ peripheral edema Psychiatric: No evidence of agitation and aggression noted Dermatology: No petechial rashes Labs and x-rays: Reviewed from today Assessment and plan ESRD: No emergent indication for renal placement therapy, Monitor hemoglobin and hematocrit, will order for a basic metabolic profile Hypertension and volume: Continue to monitor and follow, she will benefit from another 12 unit of packed red blood cell given that she is still hypotensive GI bleed; noted to have gastritis and pigmented vessel with surrounding ulcer in the pylorus gastroenterology notes reviewed Will order for basic labs today, patient appears to be resting comfortably no acute distress Patient was adequately counseled and educated regarding all the renal related issues Laboratory studies, have been explained to the patient All questions were answered and simple [place] We'll continue to follow and make recommendation for renal standpoint Objective - Vital Signs Vital signs: Vital Signs - 12hr 06/07/20 06/07/20 06/07/20 21:00 21:50 23:45 Temperature 98.0 F 98.0 F Pulse Rate 81 81 79 Respiratory 20 18 Rate Blood Pressure 115/55 112/55 Blood Pressure [Left] O2 Sat by Pulse 98 96 Oximetry 06/08/20 06/08/20 06/08/20 05:00 06:20 06:35 Temperature 98.0 F 99 F 99.4 F Pulse Rate 78 80 75 Respiratory 18 20 20 Rate Blood Pressure 104/51 90/50 94/52 Blood Pressure [Left] O2 Sat by Pulse 96 95 96 Oximetry 06/08/20 06/08/20 06/08/20 07:05 07:35 08:08 Temperature 99 F 99.3 F 99 F Pulse Rate 75 72 71 Respiratory 20 20 20 Rate Blood Pressure 122/59 Blood Pressure 104/52 89/56 [Left] O2 Sat by Pulse 98 Oximetry - Lab 06/08/20 02:19 06/07/20 09:08 Most recent lab results Calcium 9.0 mg/dL (8.4-10.2) 06/07/20 09:08 Medications & Allergies - Medications Allergies/Adverse Reactions: Allergies No Known Allergies Allergy (Verified 06/17/18 12:59) Home Medications: Home Medications Medication Instructions Recorded Confirmed Last Taken Type Ergocalciferol [Vitamin D2] 50,000 units PO QWEEK 11/12/17 06/21/18 06/18/18 09:00 History Gabapentin 300 mg PO DAILY 11/12/17 06/21/18 06/20/18 09:00 History Sitagliptin Phosphate [Januvia] 25 mg PO DAILY 11/12/17 06/21/18 06/20/18 09:00 History carvediloL [Coreg] 12.5 mg PO DAILY 11/12/17 06/21/18 06/21/18 History Aspirin 81 mg PO QDAY 05/07/18 06/21/18 06/20/18 09:00 History Ferric Citrate (Nf) [Auryxia] 210 mg PO QID 05/07/18 06/21/18 06/20/18 20:00 History L. Acidophilus/Bifid. Animalis 1 each PO QDAY 05/07/18 06/21/18 06/20/18 09:00 History [Dialyvite Chewable Probiotic] calcitrioL [Rocaltrol] 0.25 mcg PO QDAY 05/07/18 06/21/18 06/20/18 09:00 History HYDROcodone/APAP 7.5-325 [[place] 1 each PO Q6HR PRN #40 tablet 06/21/18 Unknown Rx 7.5/325] Active Medications: Generic Name Dose Route Start Last Admin Trade Name Freq PRN Reason Stop Dose Admin Acetaminophen 650 mg 06/07/20 12:00 Tylenol PO Q4H PRN Pain MILD(1-3)/Fever >100.5/YOO Sodium Chloride 1,000 mls @ 50 mls/hr 06/07/20 15:00 06/07/20 21:52 Nacl 0.9% 1000 Ml IV 50 mls/hr DIRECT ROGELIO Administration Ondansetron HCl 4 mg 06/07/20 12:00 Zofran IV Q8H PRN Nausea And Vomiting Pantoprazole Sodium 40 mg 06/07/20 22:00 06/07/20 21:52 Protonix IV 40 mg BID ROGELIO Administration Sodium Chloride 10 ml 06/07/20 12:00 06/07/20 21:53 Sodium Chloride Flush Syringe 10 Ml IV 10 ml BID ROGELIO Administration Sodium Chloride 10 ml 06/07/20 12:00 Sodium Chloride Flush Syringe 10 Ml IV PRN PRN LINE FLUSH
--- NOTE | 2020-06-08 09:18 | Progress Note ---
Assessment and Plan Assessment and plan: Severe symptomatic anemia, GI bleed on top of anemia of chronic illness -Patient was transfused 2 units of blood and posttransfusion hemoglobin this morning is 6.8, will transfuse 2 more units of blood -GI consulted and did EGD which showed gastritis -On IV pantoprazole 40 mg IV twice daily GI bleed -Management as stated above and GI will follow End-stage renal disease on hemodialysis -Nephrology consult appreciated -No need for dialysis today Hypotension -Due to volume depletion -We will give HER-2 units of blood and monitor DVT prophylaxis on SCDs because of GI. CODE STATUS -DNR/DNI Disposition -Continue inpatient care. Monitor H&H History Interval history: Patient was seen and evaluated this morning Patient did not have any complaints Hospitalist Physical - Physical exam Narrative exam: Not in cardiopulmonary distress. The patient appeared well nourished and normally developed. Vital signs as documented. Head exam is unremarkable. No scleral icterus, pale conjunctiva. Neck is without jugular venous distension, thyromegaly, or carotid bruits. Lungs are clear to auscultation. Cardiac exam reveals regular rate and Rhythm. Abdominal exam reveals normal bowel sounds, nontender, no organomegaly. Extremities are nonedematous and both femoral and pedal pulses are normal. 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 No focal weakness. - Constitutional Vitals: Temp Pulse Resp BP Pulse Ox 98.3 F 71 20 89/56 99 06/08/20 08:30 06/08/20 08:08 06/08/20 08:30 06/08/20 08:08 06/08/20 08:07 HEART Score - HEART Score Troponin: Troponin T 0.084 ng/mL (0.00-0.029) H 06/07/20 14:21 Results - Labs CBC & Chem 7: 06/08/20 02:19 06/07/20 09:08 Labs: Laboratory Last Values WBC 6.4 K/mm3 (4.5-11.0) 06/07/20 09:08 RBC 1.35 M/mm3 (3.65-5.03) L 06/07/20 09:08 Hgb 6.8 gm/dl (10.1-14.3) L 06/08/20 02:19 Hct 19.3 % (30.3-42.9) L* 06/08/20 02:19 MCV 100 fl (79-97) H 06/07/20 09:08 MCH 33 pg (28-32) H 06/07/20 09:08 MCHC 34 % (30-34) 06/07/20 09:08 RDW 14.7 % (13.2-15.2) 06/07/20 09:08 Plt Count 124 K/mm3 (140-440) L 06/07/20 09:08 Lymph % (Auto) 14.7 % (13.4-35.0) 06/07/20 09:08 [place] % (Auto) 4.4 % (0.0-7.3) 06/07/20 09:08 Eos % (Auto) 0.3 % (0.0-4.3) 06/07/20 09:08 Baso % (Auto) 0.3 % (0.0-1.8) 06/07/20 09:08 Lymph # 0.9 K/mm3 (1.2-5.4) L 06/07/20 09:08 [place] # 0.3 K/mm3 (0.0-0.8) 06/07/20 09:08 Eos # 0.0 K/mm3 (0.0-0.4) 06/07/20 09:08 Baso # 0.0 K/mm3 (0.0-0.1) 06/07/20 09:08 Seg Neutrophils % 80.3 % (40.0-70.0) H 06/07/20 09:08 Seg Neutrophils # 5.2 K/mm3 (1.8-7.7) 06/07/20 09:08 PT 14.8 Sec. (12.2-14.9) 06/07/20 09:54 INR 1.15 (0.87-1.13) H 06/07/20 09:54 APTT 27.6 Sec. (24.2-36.6) 06/07/20 09:54 Sodium 138 mmol/L (137-145) 06/07/20 09:08 Potassium 3.1 mmol/L (3.6-5.0) L 06/07/20 09:08 Chloride 97.1 mmol/L (98-107) L 06/07/20 09:08 Carbon Dioxide 24 mmol/L (22-30) 06/07/20 09:08 Anion Gap 20 mmol/L 06/07/20 09:08 BUN 53 mg/dL (7-17) H 06/07/20 09:08 Creatinine 5.5 mg/dL (0.6-1.2) H 06/07/20 09:08 Estimated GFR 10 ml/min 06/07/20 09:08 BUN/Creatinine Ratio 10 % 06/07/20 09:08 Glucose 99 mg/dL (65-100) 06/07/20 09:08 POC Glucose 142 (70-105) H 06/07/20 22:07 Calcium 9.0 mg/dL (8.4-10.2) 06/07/20 09:08 Total Bilirubin 0.40 mg/dL (0.1-1.2) 06/07/20 09:08 AST 14 units/L (5-40) 06/07/20 09:08 ALT 11 units/L (7-56) 06/07/20 09:08 Alkaline Phosphatase 45 units/L (35-129) 06/07/20 09:08 Troponin T 0.084 ng/mL (0.00-0.029) H 06/07/20 14:21 Total Protein 5.3 g/dL (6.3-8.2) L 06/07/20 09:08 Albumin 3.1 g/dL (3.9-5) L 06/07/20 09:08 Albumin/Globulin Ratio 1.4 % 06/07/20 09:08 Triglycerides 155 mg/dL (2-149) H 06/07/20 09:08 Cholesterol 118 mg/dL (50-199) 06/07/20 09:08 LDL Cholesterol Direct 56 mg/dL (50-130) 06/07/20 09:08 HDL Cholesterol 32 mg/dL (40-59) L 06/07/20 09:08 Cholesterol/HDL Ratio 3.68 % 06/07/20 09:08 Lipase 44 units/L (13-60) 06/07/20 09:08 Blood Type A POSITIVE 06/07/20 09:54 Antibody Screen Negative 06/07/20 09:54 Crossmatch See Detail 06/07/20 09:54 Microbiology: Microbiology 06/07/20 09:50 Stool Stool Occult Blood (MARVIN) - Final Riley/IV: Voiding Method Toilet IV Catheter Type [Left ej Internal Jugular] IV Catheter Type [Right EJ Internal Jugular] Active Medications - Current Medications Current Medications: Generic Name Dose Route Start Last Admin Trade Name Freq PRN Reason Stop Dose Admin Acetaminophen 650 mg 06/07/20 12:00 Tylenol PO Q4H PRN Pain MILD(1-3)/Fever >100.5/YOO Sodium Chloride 1,000 mls @ 50 mls/hr 06/07/20 15:00 06/07/20 21:52 Nacl 0.9% 1000 Ml IV 50 mls/hr DIRECT ROGELIO Administration Ondansetron HCl 4 mg 06/07/20 12:00 Zofran IV Q8H PRN Nausea And Vomiting Pantoprazole Sodium 40 mg 06/07/20 22:00 06/07/20 21:52 Protonix IV 40 mg BID ROGELIO Administration Sodium Chloride 10 ml 06/07/20 12:00 06/07/20 21:53 Sodium Chloride Flush Syringe 10 Ml IV 10 ml BID ROGELIO Administration Sodium Chloride 10 ml 06/07/20 12:00 Sodium Chloride Flush Syringe 10 Ml IV PRN PRN LINE FLUSH
[2020-06-08] MEDS: PANTOPRAZOLE 40 MG INJ IV SCH ×2 (10:16→21:39)
--- NOTE | 2020-06-08 10:34 | Gastroenterology Progress Note ---
Assessment and Plan - Patient Problems (1) Gastric ulcer with hemorrhage Current Visit: Yes Status: Acute Plan to address problem: - Acute pyloric channel ulcer requiring cautery 06/07. - Although still anemic (ESRD, baseline hgb 10 from 2018), she has no melena, hematemesis or abdominal pain. - Will advance diet, but continue protonix IV. - If hct stable, then OK to d/c home tomorrow. - If persistently anemic, or if melena recurs, will get repeat EGD. - OK to resume cardiac ASA or blood thinners on 06/11, but avoid all NSAIDs. - OK to have heparin in HD, but avoid use for DVT PPY. Subjective Date of service: 06/08/20 Principal diagnosis: Gastric Ulcer with Hemorrhage Interval history: The patient has been stable overnight without N/V/abdominal pain. She denies hematemesis or melena. She wants to eat and tolerated clears this AM. Objective - Constitutional Vitals: Temp Pulse Resp BP Pulse Ox 99.1 F 75 20 136/64 98 06/08/20 10:07 06/08/20 10:07 06/08/20 10:07 06/08/20 10:07 06/08/20 10:07 General appearance: no acute distress - EENT Eyes: PERRL, EOM intact - Respiratory Respiratory effort: normal Respiratory: bilateral: CTA - Cardiovascular Rhythm: regular Heart Sounds: Present: S1 & S2 - Gastrointestinal General gastrointestinal: Present: soft, non-tender, non-distended - Labs CBC & Chem 7: 06/08/20 02:19 06/07/20 09:08 Labs: Laboratory Results - last 24 hr 06/07/20 06/07/20 06/07/20 09:54 09:54 11:57 Hgb Hct PT 14.8 INR 1.15 H APTT 27.6 POC Glucose Troponin T 0.090 H D Blood Type A POSITIVE Antibody Screen Negative Crossmatch See Detail 06/07/20 06/07/20 06/07/20 14:21 18:43 22:07 Hgb 8.0 L D Hct 22.6 L D PT INR APTT POC Glucose 142 H Troponin T 0.084 H Blood Type Antibody Screen Crossmatch 06/08/20 02:19 Hgb 6.8 L Hct 19.3 L* PT INR APTT POC Glucose Troponin T Blood Type Antibody Screen Crossmatch
[2020-06-08 15:24] LABS: Hematocrit 24.5 % (30.3-42.9); Hemoglobin 8.4 gm/dl (10.1-14.3); Mean Corpuscular HGB Conc 34 % (30-34); Mean Corpuscular Volume 91 fl (79-97); Platelet Count 108 K/mm3 (140-440); Red Cell Distribution Width 16.2 % (13.2-15.2)
--- NOTE | 2020-06-08 15:34 | Progress Note ---
Subjective Date of service: 06/08/20 Principal diagnosis: Gastric Ulcer with Hemorrhage Interval history: consult dictated. Objective Vital Signs Temp Pulse Resp BP BP Pulse Ox 06/08/20 10:07 99.1 F 75 20 136/64 98 06/08/20 08:30 98.3 F 20 06/08/20 08:08 99 F 71 20 89/56 06/08/20 08:07 71 99 06/08/20 08:06 99.0 F 73 20 89/56 98 06/08/20 07:38 99.3 F 20 104/52 06/08/20 07:35 99.3 F 72 20 104/52 06/08/20 07:05 99 F 73 20 122/59 98 06/08/20 06:36 73 20 94/52 97 06/08/20 06:35 99.4 F 75 20 94/52 96 06/08/20 06:20 99 F 80 20 90/50 95 06/08/20 06:01 80 20 90/50 97 06/08/20 05:00 98.0 F 78 18 104/51 96 06/07/20 23:45 98.0 F 79 18 112/55 96 06/07/20 21:50 98.0 F 81 20 115/55 98 06/07/20 21:00 81 06/07/20 20:00 114/59 06/07/20 19:00 80 20 124/57 100 06/07/20 18:30 83 21 129/64 99 06/07/20 18:00 85 23 141/67 100 06/07/20 17:42 98.5 F 85 17 150/70 06/07/20 17:30 85 19 137/65 100 06/07/20 17:05 98.5 F 85 20 150/70 06/07/20 17:00 87 18 150/70 99 06/07/20 16:30 85 17 142/62 97 06/07/20 16:20 98.6 F 87 18 144/67 97 06/07/20 16:19 87 17 131/63 99 06/07/20 15:57 90 17 151/65 100 06/07/20 15:42 88 17 151/65 88 - Labs and Meds CBC 06/07/20 06/08/20 06/08/20 Range/Units 18:43 02:19 14:54 WBC 7.9 (4.5-11.0) K/mm3 RBC 2.70 L (3.65-5.03) M/mm3 Hgb 8.0 L D 6.8 L 8.4 L (10.1-14.3) gm/dl Hct 22.6 L D 19.3 L* 24.5 L (30.3-42.9) % Plt Count 108 L (140-440) K/mm3
[2020-06-08 15:46] LABS: Eosinophils # (Auto) 0.2 K/mm3 (0.0-0.4); Eosinophils % (Auto) 2.8 % (0.0-4.3); Lymphocytes # (Auto) 1.3 K/mm3 (1.2-5.4); Lymphocytes % (Auto) 16.2 % (13.4-35.0); Monocytes # (Auto) 0.6 K/mm3 (0.0-0.8); Monocytes % (Auto) 7.4 % (0.0-7.3)
[2020-06-08 15:48] LABS: Basophils % (Auto) 0.3 % (0.0-1.8)
--- NOTE | 2020-06-08 15:59 | Consultation ---
HISTORY OF PRESENT ILLNESS: The patient is a 59-year-old female with a history of end-stage renal disease and she presented with nausea, vomiting and a low blood pressure at hemodialysis. She admitted to some weakness and melena. A Cardiology consult was requested because of abnormal troponin levels. She gives no history of heart disease of any kind. There has been no chest pain, shortness of breath, easy fatigability, palpitations, dizziness, or ankle edema. She states she had a negative stress test about 2 years ago. PAST HISTORY: She is currently on hemodialysis and used to be on peritoneal dialysis. ALLERGIES: None. SOCIAL HISTORY: Smoking: None. Alcohol: No heavy use. OPERATIONS: AV graft formation. FAMILY HISTORY: No significant medical problems listed. REVIEW OF SYSTEMS: No infectious symptoms were described. There are no previous GI disorders described. PHYSICAL EXAMINATION: GENERAL: Well-developed, well-nourished, in no acute distress. Alert, oriented, cooperative. Mental status normal. EYES, NOSE, AND THROAT: Unremarkable. NECK: Reveals no JVD or bruits. There is an IV in the left external jugular. LUNGS: Clear. No labored respirations. HEART: Regular rhythm. Soft S4. No murmurs or rubs. ABDOMEN: Soft, nontender, no masses. Bowel sounds intact. EXTREMITIES: No cyanosis, clubbing, edema. Peripheral pulses are intact. NEUROLOGIC: Symmetrical. SKIN: Clear. DIAGNOSTIC DATA: A 12-lead EKG pending. IMPRESSION: 1. Abnormal troponin levels: They are relatively mild and elevation and there is no serial rise. There are no symptoms or findings suggestive of an acute coronary syndrome. She states she had a negative stress test about 2 years ago and I will try to locate that. I will review the 12-lead EKG as well. 2. Severe anemia due to peptic ulcer disease and upper GI bleed: improved. 3. End-stage renal disease, on hemodialysis. 4. Hyperlipidemia. Thank you for this consultation. We will follow the patient. JOB# [id number] MENG/NTS
--- NOTE | 2020-06-09 08:16 | Progress Note ---
Subjective Principal diagnosis: Gastric Ulcer with Hemorrhage Interval history: Patient was seen today for follow-up of multiple renal related issues No complaints of any chest pain pressure or shortness of breath currently receiving IV fluid which was discontinued today Interdisciplinary notes that also reviewed Events of 24 hours vitals labs intake output medications were reviewed Past medical history: Reviewed Family history: Reviewed Social history: Reviewed Allergies: Reviewed Physical examination: Vitals: Reviewed HEENT: No pallor or icterus oral mucosa moist Neck: Supple no JVD no thyromegaly Chest: Bilateral clear to auscultation anteriorly Heart: Regular rate and rhythm S1-S2 heard no S3-S4 Abdomen: Soft nontender no voluntary guarding rigidity rebound Extremity: Dry skin less than 1+ peripheral edema Psychiatric: No evidence of agitation and aggression noted Dermatology: No petechial rashes Labs and x-rays: Reviewed from today Assessment and plan ESRD: No emergent indication for renal placement therapy, we will order for hemodialysis treatment Wednesday and Wednesday patient did not receive dialysis during the weekend as the volume status and electrolytes were okay She is currently being dialyzed at [facility] and was admitted with severe anemia started having bleeding since Wednesday and was hypotensive and hence was brought in we will give her iron as well as Procrit today She is feeling much better: Blood pressure has stabilized discontinued IV fluid today Status post endoscopy patient noted to have gastritis and pigmented vessel with surrounding ulcer in the pylorus gastroenterology notes reviewed Will order for basic labs today, patient appears to be resting comfortably no acute distress care plan was also discussed with patient as well as her nurse All questions were answered and simple [place] We'll continue to follow and make recommendation for renal standpoint Objective - Vital Signs Vital signs: Vital Signs - 12hr 06/08/20 06/09/20 06/09/20 23:52 03:00 05:13 Temperature 98.0 F 98.0 F Pulse Rate 71 70 72 Respiratory 18 18 Rate Blood Pressure 132/60 138/62 O2 Sat by Pulse 96 97 Oximetry 06/09/20 07:59 Temperature 98.3 F Pulse Rate 73 Respiratory 20 Rate Blood Pressure 139/68 O2 Sat by Pulse 98 Oximetry - Lab 06/09/20 11:49 06/09/20 11:49 Most recent lab results Calcium 9.0 mg/dL (8.4-10.2) 06/07/20 09:08 Medications & Allergies - Medications Allergies/Adverse Reactions: Allergies No Known Allergies Allergy (Verified 06/17/18 12:59) Home Medications: Home Medications Medication Instructions Recorded Confirmed Last Taken Type Ergocalciferol [Vitamin D2] 50,000 units PO QWEEK 11/12/17 06/09/20 06/01/20 History calcitrioL [Rocaltrol] 0.25 mcg PO QDAY 05/07/18 06/09/20 06/06/20 History Active Medications: Generic Name Dose Route Start Last Admin Trade Name Freq PRN Reason Stop Dose Admin Acetaminophen 650 mg 06/07/20 12:00 Tylenol PO Q4H PRN Pain MILD(1-3)/Fever >100.5/YOO Sodium Chloride 1,000 mls @ 50 mls/hr 06/07/20 15:00 06/07/20 21:52 Nacl 0.9% 1000 Ml IV 50 mls/hr DIRECT ROGELIO Administration Ondansetron HCl 4 mg 06/07/20 12:00 Zofran IV Q8H PRN Nausea And Vomiting Pantoprazole Sodium 40 mg 06/07/20 22:00 06/08/20 21:39 Protonix IV 40 mg BID ROGELIO Administration Sodium Chloride 10 ml 06/07/20 12:00 06/08/20 21:39 Sodium Chloride Flush Syringe 10 Ml IV 10 ml BID ROGELIO Administration Sodium Chloride 10 ml 06/07/20 12:00 Sodium Chloride Flush Syringe 10 Ml IV PRN PRN LINE FLUSH
[2020-06-09] MEDS: PANTOPRAZOLE 40 MG INJ IV SCH ×2 (10:14→21:13)
--- NOTE | 2020-06-09 12:13 | Progress Note ---
Assessment and Plan Assessment and plan: 59-year-old female with a medical history of end-stage renal disease on dialysis Wednesday, Wednesday, Wednesday, diabetes, hypertension who presented to the hospital after episode of nausea with vomiting and hypotension upon arrival to dialysis center. Patient apparently had a systolic blood pressure in the 70s. Patient received antiemetic medication prior to arrival with improvement in nausea and vomiting and was provided a 300 normal saline bolus with improvement of blood pressure. She denied headache, chest pain, abdominal pain, or shortness of breath. He has been compliant with her dialysis sessions. Patient does states she had episode of black stool 3 days ago. Patient states she had a normal colonoscopy in 2018 denies history of peptic ulcer disease or previous GI bleed. Patient is on a spirin 1 mg daily denies other antiplatelet or blood thinner use. [employer] Manager: Dr. Griffin Here in the ER, she was noted to have hemoglobin 4.5. He was admitted for severe symptomatic anemia and GI was consulted. She was transfused PRBCs Patient had an EGD that showed hiatal hernia, gastritis with pigmented vessel with surrounding ulcer in the pylorus which was injected with epinephrine and /. Cardiology was consulted for evaluation of elevated troponin. As per cardiology, her stress test from previous will be reviewed. Etiology of elevated troponin likely from ongoing GI bleeding. Patient hemoglobin is stable at 8.6. She denies any bloody stool this morning. Problems Severe symptomatic anemia, GI bleed on top of anemia of chronic illness -Now status post 4 units PRBCs -GI consulted and did EGD which showed gastritis -Continue PPI -Monitor for any GI bleed as she may need endoscopy if any recurrence GI bleed -Management as stated above and GI will follow End-stage renal disease on hemodialysis -Hemodialysis as scheduled-Fridays -Nephrology recommendations appreciated Hypotension -From ongoing GI blood loss but this has resolved. Elevated troponin -Cardiology consulted. Stress test from previous hospitalization will be reviewed -Continue to monitor for now as per cardiology. -Patient denies any chest pain DVT prophylaxis on SCDs for now. GI prophylaxis-PPI Full code Hopefully DC tomorrow after hemodialysis if remains stable History Interval history: Patient seen and examined at bedside this morning. She has no complaints today. Denies any bleeding Hospitalist Physical - Constitutional Vitals: Temp Pulse Resp BP Pulse Ox 98.2 F 71 20 172/67 98 06/09/20 12:03 06/09/20 12:03 06/09/20 12:03 06/09/20 12:03 06/09/20 12:03 General appearance: Present: no acute distress - EENT Eyes: Present: PERRL - Neck Neck: Present: supple, normal ROM - Respiratory Respiratory: bilateral: CTA - Cardiovascular Rhythm: regular Heart Sounds: Present: S1 & S2 - Extremities Extremities: No edema - Abdominal General gastrointestinal: soft, non-tender, non-distended, normal bowel sounds - Psychiatric Psychiatric: appropriate mood/affect - Neurologic Neurologic: CNII-XII intact HEART Score - HEART Score Troponin: Troponin T 0.084 ng/mL (0.00-0.029) H 06/07/20 14:21 Results - Labs CBC & Chem 7: 06/08/20 14:54 06/07/20 09:08 Labs: Laboratory Last Values WBC 7.9 K/mm3 (4.5-11.0) 06/08/20 14:54 RBC 2.70 M/mm3 (3.65-5.03) L 06/08/20 14:54 Hgb 8.4 gm/dl (10.1-14.3) L 06/08/20 14:54 Hct 24.5 % (30.3-42.9) L 06/08/20 14:54 MCV 91 fl (79-97) 06/08/20 14:54 MCH 31 pg (28-32) 06/08/20 14:54 MCHC 34 % (30-34) 06/08/20 14:54 RDW 16.2 % (13.2-15.2) H 06/08/20 14:54 Plt Count 108 K/mm3 (140-440) L 06/08/20 14:54 Lymph % (Auto) 16.2 % (13.4-35.0) 06/08/20 14:54 [place] % (Auto) 7.4 % (0.0-7.3) H 06/08/20 14:54 Eos % (Auto) 2.8 % (0.0-4.3) 06/08/20 14:54 Baso % (Auto) 0.3 % (0.0-1.8) 06/08/20 14:54 Lymph # 1.3 K/mm3 (1.2-5.4) 06/08/20 14:54 [place] # 0.6 K/mm3 (0.0-0.8) 06/08/20 14:54 Eos # 0.2 K/mm3 (0.0-0.4) 06/08/20 14:54 Baso # 0.0 K/mm3 (0.0-0.1) 06/08/20 14:54 Seg Neutrophils % 73.3 % (40.0-70.0) H 06/08/20 14:54 Seg Neutrophils # 5.8 K/mm3 (1.8-7.7) 06/08/20 14:54 PT 14.8 Sec. (12.2-14.9) 06/07/20 09:54 INR 1.15 (0.87-1.13) H 06/07/20 09:54 APTT 27.6 Sec. (24.2-36.6) 06/07/20 09:54 Sodium 138 mmol/L (137-145) 06/07/20 09:08 Potassium 3.1 mmol/L (3.6-5.0) L 06/07/20 09:08 Chloride 97.1 mmol/L (98-107) L 06/07/20 09:08 Carbon Dioxide 24 mmol/L (22-30) 06/07/20 09:08 Anion Gap 20 mmol/L 06/07/20 09:08 BUN 53 mg/dL (7-17) H 06/07/20 09:08 Creatinine 5.5 mg/dL (0.6-1.2) H 06/07/20 09:08 Estimated GFR 10 ml/min 06/07/20 09:08 BUN/Creatinine Ratio 10 % 06/07/20 09:08 Glucose 99 mg/dL (65-100) 06/07/20 09:08 POC Glucose 142 (70-105) H 06/07/20 22:07 Calcium 9.0 mg/dL (8.4-10.2) 06/07/20 09:08 Total Bilirubin 0.40 mg/dL (0.1-1.2) 06/07/20 09:08 AST 14 units/L (5-40) 06/07/20 09:08 ALT 11 units/L (7-56) 06/07/20 09:08 Alkaline Phosphatase 45 units/L (35-129) 06/07/20 09:08 Troponin T 0.084 ng/mL (0.00-0.029) H 06/07/20 14:21 Total Protein 5.3 g/dL (6.3-8.2) L 06/07/20 09:08 Albumin 3.1 g/dL (3.9-5) L 06/07/20 09:08 Albumin/Globulin Ratio 1.4 % 06/07/20 09:08 Triglycerides 155 mg/dL (2-149) H 06/07/20 09:08 Cholesterol 118 mg/dL (50-199) 06/07/20 09:08 LDL Cholesterol Direct 56 mg/dL (50-130) 06/07/20 09:08 HDL Cholesterol 32 mg/dL (40-59) L 06/07/20 09:08 Cholesterol/HDL Ratio 3.68 % 06/07/20 09:08 Lipase 44 units/L (13-60) 06/07/20 09:08 Blood Type A POSITIVE 06/07/20 09:54 Antibody Screen Negative 06/07/20 09:54 Crossmatch See Detail 06/07/20 09:54 Riley/IV: Voiding Method Toilet IV Catheter Type [Left ej Internal Jugular] IV Catheter Type [Right EJ Internal Jugular] Active Medications - Current Medications Current Medications: Generic Name Dose Route Start Last Admin Trade Name Freq PRN Reason Stop Dose Admin Acetaminophen 650 mg 06/07/20 12:00 Tylenol PO Q4H PRN Pain MILD(1-3)/Fever >100.5/YOO Sodium Chloride 1,000 mls @ 50 mls/hr 06/07/20 15:00 06/07/20 21:52 Nacl 0.9% 1000 Ml IV 50 mls/hr DIRECT ROGELIO Administration Ondansetron HCl 4 mg 06/07/20 12:00 Zofran IV Q8H PRN Nausea And Vomiting Pantoprazole Sodium 40 mg 06/07/20 22:00 06/09/20 10:14 Protonix IV 40 mg BID ROGELIO Administration Sodium Chloride 10 ml 06/07/20 12:00 06/09/20 10:16 Sodium Chloride Flush Syringe 10 Ml IV 10 ml BID ROGELIO Administration Sodium Chloride 10 ml 06/07/20 12:00 Sodium Chloride Flush Syringe 10 Ml IV PRN PRN LINE FLUSH
[2020-06-09 12:17] LABS: Basophils # (Auto) 0.1 K/mm3 (0.0-0.1); Basophils % (Auto) 0.9 % (0.0-1.8); Eosinophils # (Auto) 0.3 K/mm3 (0.0-0.4); Eosinophils % (Auto) 3.7 % (0.0-4.3); Hematocrit 26.8 % (30.3-42.9); Hemoglobin 8.8 gm/dl (10.1-14.3); Lymphocytes # (Auto) 1.5 K/mm3 (1.2-5.4); Lymphocytes % (Auto) 17.2 % (13.4-35.0); Mean Corpuscular HGB Conc 33 % (30-34); Mean Corpuscular Volume 91 fl (79-97); Monocytes # (Auto) 0.6 K/mm3 (0.0-0.8); Monocytes % (Auto) 7.4 % (0.0-7.3); Platelet Count 112 K/mm3 (140-440); Red Blood Count 2.96 M/mm3 (3.65-5.03); Red Cell Distribution Width 16.2 % (13.2-15.2)
[2020-06-09 12:36] LABS: Calcium 8.8 mg/dL (8.4-10.2)
--- NOTE | 2020-06-09 14:51 | Gastroenterology Progress Note ---
Assessment and Plan - Acute pyloric channel ulcer requiring cautery 06/07 -Continue Protonix 40 mg twice daily, may switch to oral dosing Hemoglobin stable, so GI will sign off and from GI perspective patient safe for discharge - OK to resume cardiac ASA or blood thinners on 06/11, but avoid all NSAIDs. - OK to have heparin in HD - Patient Problems (1) Gastric ulcer Current Visit: Yes Status: Acute (2) Gastric ulcer with hemorrhage Current Visit: Yes Status: Acute Subjective Date of service: 06/09/20 Principal diagnosis: Gastric Ulcer with Hemorrhage Interval history: Patient reports stool returning back to normal no overt GI bleeding no abdominal pain, hemoglobin stable Objective - Constitutional Vitals: Temp Pulse Resp BP Pulse Ox 98.2 F 71 20 172/67 98 06/09/20 12:03 06/09/20 12:03 06/09/20 12:03 06/09/20 12:03 06/09/20 12:03 General appearance: no acute distress - EENT Eyes: PERRL - Neck Neck: supple - Respiratory Respiratory effort: normal - Cardiovascular Rhythm: regular Heart Sounds: Present: systolic murmur - Gastrointestinal General gastrointestinal: Present: soft, non-tender - Labs CBC & Chem 7: 06/09/20 11:49 06/09/20 11:49 Labs: Laboratory Results - last 24 hr 06/07/20 06/08/20 06/09/20 09:54 14:54 11:49 WBC 7.9 8.5 RBC 2.70 L 2.96 L Hgb 8.4 L 8.8 L Hct 24.5 L 26.8 L MCV 91 91 MCH 31 30 MCHC 34 33 RDW 16.2 H 16.2 H Plt Count 108 L 112 L Lymph % (Auto) 16.2 17.2 [place] % (Auto) 7.4 H 7.4 H Eos % (Auto) 2.8 3.7 Baso % (Auto) 0.3 0.9 Lymph # 1.3 1.5 [place] # 0.6 0.6 Eos # 0.2 0.3 Baso # 0.0 0.1 Seg Neutrophils % 73.3 H 70.8 H Seg Neutrophils # 5.8 6.0 Sodium Potassium Chloride Carbon Dioxide Anion Gap BUN Creatinine Estimated GFR BUN/Creatinine Ratio Glucose Calcium Blood Type A POSITIVE Antibody Screen Negative Crossmatch See Detail 06/09/20 11:49 WBC RBC Hgb Hct MCV MCH MCHC RDW Plt Count Lymph % (Auto) [place] % (Auto) Eos % (Auto) Baso % (Auto) Lymph # [place] # Eos # Baso # Seg Neutrophils % Seg Neutrophils # Sodium 141 Potassium 4.5 D Chloride 101.1 Carbon Dioxide 20 L Anion Gap 24 BUN 88 H Creatinine 9.0 H D Estimated GFR 5 BUN/Creatinine Ratio 10 Glucose 100 Calcium 8.8 Blood Type Antibody Screen Crossmatch
--- NOTE | 2020-06-09 15:21 | Progress Note ---
Assessment and Plan - Patient Problems (1) Troponin level elevated Current Visit: Yes Status: Acute (2) Gastric ulcer Current Visit: Yes Status: Acute (3) Gastric ulcer with hemorrhage Current Visit: Yes Status: Acute (4) End-stage renal disease needing dialysis Onset Date: Unknown Current Visit: No Status: Chronic (5) HTN (hypertension) Current Visit: No Status: Chronic Qualifiers: Hypertension type: essential hypertension Qualified Code(s): I10 - Essential (primary) hypertension (6) Hyperphosphatemia Current Visit: No Status: Chronic Subjective Date of service: 06/09/20 Principal diagnosis: Gastric Ulcer with Hemorrhage Interval history: NO C/O Objective Vital Signs Temp Pulse Resp BP Pulse Ox 06/09/20 12:03 98.2 F 71 20 172/67 98 06/09/20 11:08 69 06/09/20 07:59 98.3 F 73 20 139/68 98 06/09/20 05:13 98.0 F 72 18 138/62 97 06/09/20 03:00 70 06/08/20 23:52 98.0 F 71 18 132/60 96 06/08/20 19:52 98.8 F 74 18 130/54 94 06/08/20 16:02 98.9 F 77 20 138/67 95 - Physical Examination General: Appears Well, No Apparent Distress HEENT: Positive: PERRL Neck: Positive: neck supple Cardiac: Positive: Regular Rate, Systolic Murmur Lungs: Positive: clear to auscultation Neuro: Positive: Grossly Intact Abdomen: Positive: Soft Extremities: Present: edema (NO) - Labs and Meds CBC 06/08/20 06/09/20 Range/Units 14:54 11:49 WBC 7.9 8.5 (4.5-11.0) K/mm3 RBC 2.70 L 2.96 L (3.65-5.03) M/mm3 Hgb 8.4 L 8.8 L (10.1-14.3) gm/dl Hct 24.5 L 26.8 L (30.3-42.9) % Plt Count 108 L 112 L (140-440) K/mm3 Lymph # 1.3 1.5 (1.2-5.4) K/mm3 [place] # 0.6 0.6 (0.0-0.8) K/mm3 Eos # 0.2 0.3 (0.0-0.4) K/mm3 Baso # 0.0 0.1 (0.0-0.1) K/mm3 Comprehensive Metabolic Panel 06/09/20 Range/Units 11:49 Sodium 141 (137-145) mmol/L Potassium 4.5 D (3.6-5.0) mmol/L Chloride 101.1 (98-107) mmol/L Carbon Dioxide 20 L (22-30) mmol/L BUN 88 H (7-17) mg/dL Creatinine 9.0 H D (0.6-1.2) mg/dL Glucose 100 (65-100) mg/dL Calcium 8.8 (8.4-10.2) mg/dL
[2020-06-09] MEDS ORDERED: SODIUM CHLORIDE 0.9% 100 ML IV PRN (19:03)
[2020-06-09] MEDS ORDERED: IRON SUCROSE IV ONE (20:10)
[2020-06-09] MEDS ORDERED: EPOETIN ALFA 20,000 UNIT/1 ML INJ SUB-Q ONE (21:00)
[2020-06-09] MEDS ORDERED: IRON SUCROSE 200 MG in SODIUM CHLORIDE 0.9% 100 ML IV ONE (21:00)
[2020-06-09] MEDS: SODIUM FERRIC GLUCON/SUCRO 125 MG in SODIUM CHLORIDE 0.9% 100 ML IV SCH ×2 (21:13→22:47)
[2020-06-09] MEDS: amLODIPine 10 MG TAB PO SCH (21:13)
--- NOTE | 2020-06-10 09:40 | Progress Note ---
Assessment and Plan Assessment - End-stage renal disease on hemodialysis - hypertension, controlled - Anemia of ESRD - severe gastritis, status post 4 units of blood this admission. GI following. - Elevated troponin, acute OK ruled out. Cardiology following. - Hyperparathyroidism - Hyperphosphatemia Recommendations - Hemodialysis today - Monitor volume status and labs daily and assess need for additional sessions of dialysis - ESRD diet with 1.4 g/kg per day protein - Renally dose medications for creatinine clearance less than 15 cc/min - Continue home antihypertensives - Hold antihypertensives on hemodialysis days for systolics less than 160 - continue phosphorus binders when tolerating by mouth diet - Epogen with hemodialysis - continue calcitriol - Reviewed GI and cardiology recommendations Subjective Date of service: 06/10/20 Principal diagnosis: Gastric Ulcer with Hemorrhage Interval history: Tolerated dialysis without complications Objective - Exam Narrative Exam: Vitals: Reviewed General: No acute distress HEENT: Oral mucosa moist, no pharyngeal erythema, no evidence of epistaxis Neck: Supple, no evidence of any JVD, trachea midline, no thyromegaly Chest: Clear to auscultation, no crackles, rales or wheezes Heart: Regular rate and rhythm, S1-S2 heard, no S3-S4, no pericardial rub Abdomen: Soft, nontender, no renal bruit, no suprapubic masses no CVA tenderness Extremity: No peripheral cyanosis, edema and dry skin Neurological: Alert, awake, no asterixis Dermatology; no skin rashes Back: Nontender thoracolumbar spine, no CVA tenderness Psych: No agitation and aggression Musculoskeletal: No joint effusion noted - Vital Signs Vital signs: Vital Signs - 12hr 06/10/20 06/10/20 00:15 04:54 Temperature 98.9 F 98.8 F Pulse Rate 79 75 Respiratory 18 16 Rate Blood Pressure 132/62 128/65 O2 Sat by Pulse 97 92 Oximetry - Lab 06/09/20 11:49 06/09/20 11:49 Most recent lab results Calcium 8.8 mg/dL (8.4-10.2) 06/09/20 11:49 Medications & Allergies - Medications Allergies/Adverse Reactions: Allergies No Known Allergies Allergy (Verified 06/17/18 12:59) Home Medications: Home Medications Medication Instructions Recorded Confirmed Last Taken Type Ergocalciferol [Vitamin D2] 50,000 units PO QWEEK 11/12/17 06/09/20 06/01/20 History calcitrioL [Rocaltrol] 0.25 mcg PO QDAY 05/07/18 06/09/20 06/06/20 History amLODIPine 5 mg PO DAILY #30 tab 06/10/20 Unknown Rx Active Medications: Generic Name Dose Route Start Last Admin Trade Name Freq PRN Reason Stop Dose Admin Acetaminophen 650 mg 06/07/20 12:00 Tylenol PO Q4H PRN Pain MILD(1-3)/Fever >100.5/YOO Amlodipine Besylate 10 mg 06/09/20 18:00 06/09/20 21:13 Amlodipine PO 10 mg QDAY ROGELIO Administration Sodium Chloride 1,000 mls @ 50 mls/hr 06/07/20 15:00 06/07/20 21:52 Nacl 0.9% 1000 Ml IV 50 mls/hr DIRECT ROGELIO Administration Sodium Chloride 100 mls @ 999 mls/hr 06/09/20 19:03 Nacl 0.9% IV ALEX PRN Hypotension Ondansetron HCl 4 mg 06/07/20 12:00 Zofran IV Q8H PRN Nausea And Vomiting Pantoprazole Sodium 40 mg 06/10/20 10:00 Protonix PO BID ROGELIO Sodium Chloride 10 ml 06/07/20 12:00 06/09/20 21:18 Sodium Chloride Flush Syringe 10 Ml IV 10 ml BID ROGELIO Administration Sodium Chloride 10 ml 06/07/20 12:00 Sodium Chloride Flush Syringe 10 Ml IV PRN PRN LINE FLUSH
[2020-06-10] MEDS ORDERED: EPOETIN ALFA 10,000 UNIT/1 ML INJ SUB-Q SCH (10:00)
[2020-06-10] MEDS ORDERED: PANTOPRAZOLE 40 MG TAB PO SCH (10:00)
--- NOTE | 2020-06-10 11:16 | Progress Note ---
Assessment and Plan Nonspecific elevated troponin likely s/t ESRD Upper GI bleed s/p EGD: pyloric ulcer Severe Anemia ESRD on dialysis Hypertension Conservative cardiac management. Subjective Date of service: 06/10/20 Principal diagnosis: Gastric Ulcer with Hemorrhage Interval history: Undergoing dialysis. No cardiac complaints. Objective Vital Signs Temp Pulse Resp BP Pulse Ox 06/10/20 09:45 74 171/75 06/10/20 09:40 72 151/72 06/10/20 09:25 98.2 F 77 18 149/73 06/10/20 04:54 98.8 F 75 16 128/65 92 06/10/20 00:15 98.9 F 79 18 132/62 97 06/09/20 21:13 73 159/63 06/09/20 20:50 98.7 F 73 16 159/63 96 06/09/20 20:00 74 06/09/20 17:53 78 06/09/20 15:46 98.5 F 77 20 176/73 98 06/09/20 12:03 98.2 F 71 20 172/67 98 - Physical Examination General: No Apparent Distress HEENT: Positive: PERRL Neck: Positive: neck supple Cardiac: Positive: Reg Rate and Rhythm - Labs and Meds CBC 06/09/20 Range/Units 11:49 WBC 8.5 (4.5-11.0) K/mm3 RBC 2.96 L (3.65-5.03) M/mm3 Hgb 8.8 L (10.1-14.3) gm/dl Hct 26.8 L (30.3-42.9) % Plt Count 112 L (140-440) K/mm3 Lymph # 1.5 (1.2-5.4) K/mm3 [place] # 0.6 (0.0-0.8) K/mm3 Eos # 0.3 (0.0-0.4) K/mm3 Baso # 0.1 (0.0-0.1) K/mm3 Comprehensive Metabolic Panel 06/09/20 Range/Units 11:49 Sodium 141 (137-145) mmol/L Potassium 4.5 D (3.6-5.0) mmol/L Chloride 101.1 (98-107) mmol/L Carbon Dioxide 20 L (22-30) mmol/L BUN 88 H (7-17) mg/dL Creatinine 9.0 H D (0.6-1.2) mg/dL Glucose 100 (65-100) mg/dL Calcium 8.8 (8.4-10.2) mg/dL
--- NOTE | 2020-06-10 12:24 | Discharge Summary ---
Providers - Providers Date of Admission: 06/08/20 14:32 Date of discharge: 06/10/20 Attending physician: KOBI SYKES 06/07/20 10:16 Consult to Physician [CONS] Urgent Comment: Consulting Provider: JULIET GRIFFIN Physician Instructions: Reason For Exam: esrd mwf dialysis 06/07/20 10:17 Consult to Physician [CONS] Urgent Comment: Consulting Provider: JACKSON LOMAX Physician Instructions: Reason For Exam: anemia, guaic positive stool 06/07/20 14:33 Consult to Cardiology [CONS] Stat Consulting Provider: KRZYSZTOF JOHNSON Reason For Exam: Elevated troponin Primary care physician: ATILIO TAYLOR Hospitalization Reason for admission: Hypotension Condition: Stable Hospital course: 59-year-old female with a medical history of end-stage renal disease on dialysis Wednesday, Wednesday, Wednesday, diabetes, hypertension who presented to the hospital after episode of nausea with vomiting and hypotension upon arrival to dialysis center. Patient apparently had a systolic blood pressure in the 70s. Patient received antiemetic medication prior to arrival with improvement in nausea and vomiting and was provided a 300 normal saline bolus with improvement of blood pressure. She denied headache, chest pain, abdominal pain, or shortness of breath. He has been compliant with her dialysis sessions. Patient does states she had episode of black stool 3 days ago. Patient states she had a normal colonoscopy in 2018 denies history of peptic ulcer disease or previous GI bleed. Patient is on aspirin 1 mg daily denies other antiplatelet or blood thinner use. [employer] [facility] Justice: Dr. Griffin Here in the ER, she was noted to have hemoglobin 4.5. He was admitted for severe symptomatic anemia and GI was consulted. She was transfused PRBCs Patient had an EGD that showed hiatal hernia, gastritis with pigmented vessel with surrounding ulcer in the pylorus which was injected with epinephrine and 06/09. Cardiology was consulted for evaluation of elevated troponin. As per cardiology, her stress test from previous will be reviewed. Etiology of elevated troponin likely from ongoing GI bleeding. Patient hemoglobin is stable at 8.6. She denies any bloody stool this morning. 06/10. She remains stable and will be discharged home today. She will be follow up with GI and cardiology. Disposition: TO HOME OR SELFCARE - Discharge Diagnoses (1) Hypotension Status: Acute (2) Gastric ulcer with hemorrhage Status: Acute (3) Troponin level elevated Status: Acute (4) End-stage renal disease needing dialysis Status: Chronic (5) Acute anemia Status: Acute Core Measure Documentation - Palliative Care Palliative Care/ Comfort Measures: Not Applicable - Core Measures Any of the following diagnoses?: none Exam - Constitutional Vitals: Temp Pulse Resp BP Pulse Ox 98.2 F 72 18 109/64 92 06/10/20 09:25 06/10/20 11:45 06/10/20 09:25 06/10/20 11:45 06/10/20 04:54 General appearance: Present: no acute distress, well-nourished - EENT Eyes: Present: PERRL ENT: hearing intact, clear oral mucosa - Neck Neck: Present: supple, normal ROM - Respiratory Respiratory effort: normal Respiratory: bilateral: CTA - Cardiovascular Heart Sounds: Present: S1 & S2. Absent: rub, click - Extremities Extremities: pulses symmetrical, No edema Peripheral Pulses: within normal limits - Abdominal General gastrointestinal: Present: soft, non-tender, non-distended, normal bowel sounds Female genitourinary: Present: normal - Integumentary Integumentary: Present: clear, warm, dry - Musculoskeletal Musculoskeletal: gait normal, strength equal bilaterally - Psychiatric Psychiatric: appropriate mood/affect, intact judgment & insight - Neurologic Neurologic: CNII-XII intact, moves all extremities Plan Activity: no restrictions Additional Instructions: Follow up with cardiology and gastroenterology in the office. Continue hemodialysis as scheduled Follow up with: ATILIO TAYLOR PA [Primary Care Provider] - 7 Days BILLY SINGH MD [Staff Physician] - 7 Days Prescriptions: amLODIPine 5 mg PO DAILY #30 tab
[2020-06-10 13:16] LABS: Hepatitis B Surface Antigen Non-Reactive (Negative); Hepatitis C Virus Antibody Non-Reactive (NonReactive)
[2020-06-10 13:31] VITALS: BP 131/72
[2020-06-10] MEDS: amLODIPine 10 MG TAB PO SCH (13:31)
== END 2020-06-10 16:25 | disposition home or self-care (01) | DRG 377 ==
LOC: ED 08:30 → 4A 10:24 → OBSVTOIN 06-08 14:32
PROVIDERS: ADMIT Internal Medicine; ATTEND Internal Medicine
PROC: 30233N1 Transfusion of Nonautologous Red Blood Cells into Peripheral Vein, Percutaneous Approach (ICD-10-PCS; principal; 2020-06-07)
PROC: 0W3P8ZZ Control Bleeding in Gastrointestinal Tract, Via Natural or Artificial Opening Endoscopic (ICD-10-PCS; 2020-06-07)
PROC: 5A1D70Z Performance of Urinary Filtration, Intermittent, Less than 6 Hours Per Day (ICD-10-PCS; 2020-06-10)
DX: K29.01 Acute gastritis with bleeding (principal); N18.6 End stage renal disease; I12.0 Hypertensive chronic kidney disease with stage 5 chronic kidney disease or end stage renal disease; I95.9 Hypotension, unspecified; D69.6 Thrombocytopenia, unspecified; D64.9 Anemia, unspecified; E11.22 Type 2 diabetes mellitus with diabetic chronic kidney disease; D63.1 Anemia in chronic kidney disease; E11.40 Type 2 diabetes mellitus with diabetic neuropathy, unspecified; K44.9 Diaphragmatic hernia without obstruction or gangrene; Z66 Do not resuscitate; E21.3 Hyperparathyroidism, unspecified; Z86.73 Personal history of transient ischemic attack (TIA), and cerebral infarction without residual deficits; Z99.2 Dependence on renal dialysis; Z79.4 Long term (current) use of insulin
CPT/HCPCS: 36415; 71045; 80048; 80053; 80061; 80074; 82271; 82962; 83690; 84484; 85014; 85018; 85025; 85610; 85730; 86850; 86900; 86901; 86920; 93005; 96374; G0378; C9113; J0171; J0885; J2405; J2704; J2916; J7030; J7040; P9016

== ENCOUNTER 2021-07-31 08:51 | Outpatient (CLI) | payer MEDICARE ==
--- NOTE | 2021-07-31 15:14 | Mammography Report ---
DIGITAL SCREENING MAMMOGRAM WITH CAD, 07/31/2021 CLINICAL INFORMATION / INDICATION: Routine screening mammography. SCREENING MAMMOGRAM TECHNIQUE: Digital bilateral 2D mammography was obtained in the craniocaudal and mediolateral obliqu e projections. This examination was interpreted with the benefit of Computer-Aided Detection analysis . COMPARISON: 03/07/2019, 11/18/2017 FINDINGS: Breast Density: The breasts are extremely dense, which lowers the sensitivity of mammography. No dominant mass, suspicious calcifications, or architectural distortion in either breast. There are stable bilateral calcifications including relatively extensive vascular calcifications. IMPRESSION: No mammographic evidence of malignancy. Follow up recommendation: Routine yearly BI-RADS Category 2: Benign. A "normal" or negative report should not discourage follow up or biopsy of a clinically significant f inding. A written summary of these findings will be mailed to the patient. The patient will be entered into a mammography reporting system which will generate a reminder letter for the patient's next appointmen t at the appropriate interval. The [employer] recommends yearly mammograms starting at age 40 and continuing as l elissa as a woman is in good health. Breast MRI is recommended for women with an approximate 20-25% or greater lifetime risk of breast cancer, including women with a strong family history of breast or ova herminia cancer or who have been treated for Hodgkin's disease. Signer Name: Blake Ortega MD Signed: 07/31/2021 3:10 PM Workstation Name: [id number]
== END 2021-07-31 08:52 | disposition home or self-care (01) ==
LOC: MAMMO 08:51
PROVIDERS: ATTEND Internal Medicine
DX: Z12.31 Encounter for screening mammogram for malignant neoplasm of breast (principal)
CPT/HCPCS: 77067